=== PATIENT | female | born 1955 | race African-American/Black ===

== ENCOUNTER 2020-11-27 20:40 | Inpatient (IN) | payer OTHER ==
[~2020-11-27] VITALS: Ht 160 cm; Wt 88.5 kg
[~2020-11-27 20:40] MED LIST: ALBU18HF2 IH; FLUT1DIS3 INH; FURO-151 MT; HYDR100T26 PO; NIFE-32 MT
[2020-11-27] MEDS ORDERED: ALBUTEROL (0.083%) 2.5MG/3ML NEB HHN STA (21:22)
[2020-11-27] MEDS ORDERED: METHYLPREDNISOLONE SOD SUCC 125 MG/2 ML VIAL IV STA (21:22)
[2020-11-27 23:44] LABS: BASOPHILS % 0.6 % (0.0-2.0); CHLORIDE 111 mEq/L (98-107); EOSINOPHILS % 1.2 % (0.0-5.0); HEMATOCRIT. 30.9 % (36.0-48.0); HEMOGLOBIN. 9.8 g/dL (12.0-16.0); LYMPHOCYTES % 9.9 % (20.0-50.0); MEAN CORPUSCULAR HEMOGLOBIN 26.8 pg (28.0-32.0); MEAN CORPUSCULAR VOLUME 84.5 fL (81.0-99.0); MONOCYTES % 5.1 % (2.0-8.0); NEUTROPHILS % 83.2 % (40.0-76.0); PLATELET 246 x1000/uL (130-400); RED BLOOD CELL COUNT 3.66 mill/uL (4.2-5.4); RED CELL DISTRIBUTION WIDTH 15.9 % (11.6-14.6)
[2020-11-28] MEDS ORDERED: FUROSEMIDE 40MG/4ML VIAL IV ONE (00:15)
[2020-11-28] MEDS ORDERED: ASPIRIN 81MG TABLET PO ONE (00:15)
[2020-11-28] MEDS ORDERED: ACETAMINOPHEN 325MG TABLET PO PRN (09:15)
[2020-11-28] MEDS ORDERED: ONDANSETRON HCL 4MG/2ML INJ IV PRN (09:15)
[2020-11-28] MEDS: METHYLPREDNISOLONE SOD SUCC 40 MG/ML VIAL IV SCH ×2 (11:26→22:00)
[2020-11-28] MEDS: FUROSEMIDE 40MG/4ML VIAL IVP SCH (11:26)
[2020-11-28] MEDS: AMLODIPINE 10MG TABLET PO SCH (11:27)
[2020-11-28] MEDS: IPRATROPIUM BROMIDE (0.02%) 0.5MG/2.5ML NEB HHN SCH ×2 (12:00→20:01)
[2020-11-28] MEDS ORDERED: DEXTROSE 50% WATER 50ML SYRINGE IV PRN (16:15)
[2020-11-28] MEDS: INSULIN LISPRO (MEDIUM DOSE) 100 UNITS/ML SUBCUT SCH ×2 (19:57→22:22)
[2020-11-28] MEDS: BLOOD SUGAR DIAGNOSTIC STRIP TEST SCH ×2 (19:57→22:22)
[2020-11-28] MEDS: CLONIDINE 0.1MG TABLET PO PRN (22:25)
[2020-11-28] MEDS: FAMOTIDINE 20MG TABLET PO SCH (22:25)
[2020-11-28 22:42] VITALS: BP 177/90
[2020-11-28] MEDS ORDERED: GABA-529 MT (22:51)
[2020-11-28] MEDS ORDERED: AMLO10TA80 PO (22:51)
[2020-11-28] MEDS ORDERED: CALC-900 MT (22:51)
[2020-11-28] MEDS ORDERED: ATOR10TA MT (22:51)
[2020-11-28] MEDS ORDERED: ASPI-1497 PO (22:51)
[2020-11-28] MEDS ORDERED: SEMA0.25 SQ (22:51)
[2020-11-29] VITALS: BP 149/93
[2020-11-29] MEDS: IPRATROPIUM BROMIDE (0.02%) 0.5MG/2.5ML NEB HHN SCH ×6 (02:16→21:20)
[2020-11-29 04:00] VITALS: BP 136/50
[2020-11-29 05:53] LABS: BASOPHILS % 0.3 % (0.0-2.0); EOSINOPHILS % 0.6 % (0.0-5.0); HEMATOCRIT. 30.2 % (36.0-48.0); HEMOGLOBIN. 9.5 g/dL (12.0-16.0); LYMPHOCYTES % 11.6 % (20.0-50.0); MEAN CORPUSCULAR HEMOGLOBIN 26.8 pg (28.0-32.0); MEAN CORPUSCULAR VOLUME 84.8 fL (81.0-99.0); MEAN PLATELET VOLUME 9.7 fl (7.4-10.4); NEUTROPHILS % 79.5 % (40.0-76.0); PLATELET 242 x1000/uL (130-400); RED BLOOD CELL COUNT 3.56 mill/uL (4.2-5.4); RED CELL DISTRIBUTION WIDTH 15.8 % (11.6-14.6)
[2020-11-29] MEDS: BLOOD SUGAR DIAGNOSTIC STRIP TEST SCH ×4 (06:19→21:36)
[2020-11-29] MEDS: INSULIN LISPRO (MEDIUM DOSE) 100 UNITS/ML SUBCUT SCH ×4 (06:19→21:36)
[2020-11-29] MEDS: METHYLPREDNISOLONE SOD SUCC 40 MG/ML VIAL IV SCH (06:34)
[2020-11-29 08:00] VITALS: BP 148/54
[2020-11-29] MEDS: FUROSEMIDE 40MG/4ML VIAL IVP SCH ×2 (08:44→09:00)
[2020-11-29] MEDS: AMLODIPINE 10MG TABLET PO SCH (08:44)
[2020-11-29] MEDS ORDERED: INFLUENZA VACCINE 05/PF 0.5 ML SYRINGE IM ONE (10:00)
[2020-11-29] MEDS: FUROSEMIDE 40MG TABLET PO SCH ×2 (10:15→17:25)
[2020-11-29 12:00] VITALS: BP 170/92
[2020-11-29] MEDS: ENOXAPARIN 40MG/0.4ML SYR SUBCUT SCH (12:03)
[2020-11-29] MEDS: CLONIDINE 0.1MG TABLET PO PRN ×2 (13:01→20:58)
[2020-11-29 16:00] VITALS: BP 124/55
[2020-11-29] MEDS: PREDNISONE 20MG TABLET PO SCH (17:23)
[2020-11-29 20:00] VITALS: BP 165/86
[2020-11-29] MEDS: FAMOTIDINE 20MG TABLET PO SCH (20:57)
[2020-11-30] VITALS: BP 188/94
[2020-11-30 00:19] VITALS: BP_SYST 155; BP_SYST 173; BP_DIAS 73
[2020-11-30] MEDS: IPRATROPIUM BROMIDE (0.02%) 0.5MG/2.5ML NEB HHN SCH ×4 (01:12→12:12)
[2020-11-30] MEDS: HYDRALAZINE HCL 10MG TABLET PO PRN ×2 (01:28→10:08)
[2020-11-30 04:00] VITALS: BP 173/80
[2020-11-30] MEDS: CLONIDINE 0.1MG TABLET PO PRN (05:25)
[2020-11-30] MEDS: BLOOD SUGAR DIAGNOSTIC STRIP TEST SCH ×2 (05:41→11:57)
[2020-11-30] MEDS: FUROSEMIDE 40MG TABLET PO SCH (06:16)
[2020-11-30] MEDS: INSULIN LISPRO (MEDIUM DOSE) 100 UNITS/ML SUBCUT SCH ×2 (06:18→12:21)
[2020-11-30 08:00] VITALS: BP 186/88
[2020-11-30] MEDS: PREDNISONE 20MG TABLET PO SCH (10:06)
[2020-11-30] MEDS: AMLODIPINE 10MG TABLET PO SCH (10:07)
[2020-11-30] MEDS: ENOXAPARIN 40MG/0.4ML SYR SUBCUT SCH (10:08)
[2020-11-30] MEDS ORDERED: HYDRALAZINE HCL 100MG TABLET PO NR (10:15)
[2020-11-30] MEDS ORDERED: IPRA3AMP9 NEB (11:31)
[2020-11-30] MEDS ORDERED: FURO-151 MT (11:31)
[2020-11-30] MEDS ORDERED: P20 MT (11:31)
[2020-11-30 12:00] VITALS: BP 177/85
[2020-11-30 13:54] VITALS: BP 155/79
[2020-11-30] MEDS ORDERED: HYDRALAZINE HCL 100MG TABLET PO SCH (16:00)
== END 2020-11-30 14:40 | disposition home or self-care (01) | DRG 140 ==
LOC: ER 20:40 → MICUSO 11-28 01:09 → 7EST 11-28 20:25
PROVIDERS: ADMIT Internal Medicine; ATTEND Internal Medicine
DX: J44.1 Chronic obstructive pulmonary disease with (acute) exacerbation (principal); J96.00 Acute respiratory failure, unspecified whether with hypoxia or hypercapnia; N17.0 Acute kidney failure with tubular necrosis; I50.33 Acute on chronic diastolic (congestive) heart failure; I27.20 Pulmonary hypertension, unspecified; E11.22 Type 2 diabetes mellitus with diabetic chronic kidney disease; D64.9 Anemia, unspecified; E11.42 Type 2 diabetes mellitus with diabetic polyneuropathy; I13.0 Hypertensive heart and chronic kidney disease with heart failure and stage 1 through stage 4 chronic kidney disease, or unspecified chronic kidney disease; E66.9 Obesity, unspecified; N18.9 Chronic kidney disease, unspecified; E78.5 Hyperlipidemia, unspecified; I07.1 Rheumatic tricuspid insufficiency; M19.90 Unspecified osteoarthritis, unspecified site; G25.1 Drug-induced tremor; T48.6X5A Adverse effect of antiasthmatics, initial encounter; Y92.238 Other place in hospital as the place of occurrence of the external cause; Z68.34 Body mass index [BMI] 34.0-34.9, adult; Z71.3 Dietary counseling and surveillance
CPT/HCPCS: 36415; 71045; 80048; 80053; 82962; 83880; 84484; 85025; 90686; 93005; 94640; 99291; J1650; J1815; J1940; J2920; J2930; J7512

== ENCOUNTER 2020-12-18 07:43 | Inpatient (IN) | payer OTHER ==
[~2020-12-18] VITALS: Ht 160 cm; Wt 73.0 kg
[~2020-12-18 07:43] MED LIST changes: +AMLO10TA80 PO; +ASPI-1497 PO; +ATOR10TA MT; +CALC-900 MT; +GABA-529 MT; +IPRA3AMP9 NEB; +P20 MT; +SEMA0.25 SQ
[2020-12-18] MEDS ORDERED: IPRATROPIUM/ALBUTEROL 0.5-3(2.5)MG/3ML NEB HHN ONE (08:30)
[2020-12-18] MEDS ORDERED: PREDNISONE 20MG TABLET PO ONE (08:30)
[2020-12-18] MEDS ORDERED: ASPIRIN 325MG TABLET PO ONE (08:30)
[2020-12-18] MEDS ORDERED: CEFTRIAXONE 1 G PREMIX 50 ML IV ONE (08:45)
[2020-12-18] MEDS ORDERED: DOXYCYCLINE HYCLATE 100MG CAPSULE PO ONE (08:45)
[2020-12-18 09:09] LABS: BASOPHILS % 0.7 % (0.0-2.0); EOSINOPHILS % 0.7 % (0.0-5.0); HEMATOCRIT. 31.5 % (36.0-48.0); HEMOGLOBIN. 9.9 g/dL (12.0-16.0); LYMPHOCYTES % 8.1 % (20.0-50.0); MEAN CORPUSCULAR HEMOGLOBIN 26.9 pg (28.0-32.0); MEAN CORPUSCULAR VOLUME 85.5 fL (81.0-99.0); MEAN PLATELET VOLUME 8.9 fl (7.4-10.4); MONOCYTES % 3.8 % (2.0-8.0); NEUTROPHILS % 86.7 % (40.0-76.0); PLATELET 203 x1000/uL (130-400); RED BLOOD CELL COUNT 3.68 mill/uL (4.2-5.4); RED CELL DISTRIBUTION WIDTH 15.8 % (11.6-14.6)
[2020-12-18 09:14] LABS: CHLORIDE 110 mEq/L (98-107)
[2020-12-18] MEDS ORDERED: FUROSEMIDE 20MG/2ML VIAL IVP ONE (10:15)
[2020-12-18] MEDS ORDERED: NALOXONE HCL 0.4MG/ML VIAL IV PRN (11:30)
[2020-12-18] MEDS ORDERED: DOCUSATE SODIUM 100MG CAPSULE PO PRN (11:30)
[2020-12-18] MEDS ORDERED: ACETAMINOPHEN 325MG TABLET PO PRN (11:30)
[2020-12-18] MEDS ORDERED: IPRATROPIUM/ALBUTEROL 0.5-3(2.5)MG/3ML NEB NEB PRN (11:30)
[2020-12-18] MEDS ORDERED: ONDANSETRON HCL 4MG/2ML INJ IV PRN (11:30)
[2020-12-18] MEDS ORDERED: MORPHINE SULFATE 2 MG/ML CPJ (NOT FOR IM USE) IV PRN (11:30)
[2020-12-18] MEDS ORDERED: NA PHOS,M-B/NA PHOS,DI-BA ENEMA 118ML PR PRN (11:30)
[2020-12-18] MEDS ORDERED: HYDROCODONE/ACETAMINOPHEN 5/325MG TABLET PO PRN (11:30)
[2020-12-18] MEDS ORDERED: LORAZEPAM 2MG/ML CPJ IV PRN (11:30)
[2020-12-18] MEDS ORDERED: GUAIFENESIN 200MG/10ML SUGAR FREE UDC PO PRN (11:30)
[2020-12-18] MEDS ORDERED: MAGNESIUM/ALUMINUM HYDROXIDE/SIMETHICONE 30ML UDC PO PRN (11:30)
[2020-12-18 14:35] VITALS: BP 149/75
[2020-12-18 14:45] VITALS: BP 149/75
[2020-12-18] MEDS: ENOXAPARIN 30MG/0.3ML SYR SUBCUT SCH (15:27)
[2020-12-18 16:00] VITALS: BP 158/71
[2020-12-18] MEDS ORDERED: DEXTROSE 50% WATER 50ML SYRINGE IV PRN (16:00)
[2020-12-18 17:20] LABS: CHLORIDE 105 mEq/L (98-107)
[2020-12-18] MEDS: BLOOD SUGAR DIAGNOSTIC STRIP TEST SCH ×2 (17:25→20:46)
[2020-12-18] MEDS: INSULIN LISPRO 100 UNITS/ML SUBCUT SCH ×2 (17:34→20:46)
[2020-12-18] MEDS: DIPHENHYDRAMINE 50MG/ML VIAL IV PRN (23:29)
[2020-12-19] VITALS: BP 134/61
[2020-12-19 04:00] VITALS: BP 150/87
[2020-12-19] MEDS: CLONIDINE 0.1MG TABLET PO PRN ×2 (04:44→18:02)
[2020-12-19 05:38] LABS: BASOPHILS % 0.4 % (0.0-2.0); EOSINOPHILS % 0.2 % (0.0-5.0); HEMATOCRIT. 29.1 % (36.0-48.0); HEMOGLOBIN. 9.3 g/dL (12.0-16.0); LYMPHOCYTES % 8.8 % (20.0-50.0); MEAN CORPUSCULAR VOLUME 84.5 fL (81.0-99.0); MEAN PLATELET VOLUME 9.8 fl (7.4-10.4); MONOCYTES % 8.6 % (2.0-8.0); PLATELET 196 x1000/uL (130-400); RED BLOOD CELL COUNT 3.44 mill/uL (4.2-5.4); RED CELL DISTRIBUTION WIDTH 15.4 % (11.6-14.6)
[2020-12-19 06:21] LABS: CHLORIDE 109 mEq/L (98-107)
[2020-12-19 06:32] LABS: LDL CHOLESTEROL 66 mg/dL (5-100)
[2020-12-19 06:34] LABS: HDL CHOLESTEROL 71 mg/dL (40-59); T4 FREE 1.09 ng/dL (0.76-1.46)
[2020-12-19] MEDS: BLOOD SUGAR DIAGNOSTIC STRIP TEST SCH ×4 (06:42→21:12)
[2020-12-19 08:00] VITALS: BP 154/82
[2020-12-19] MEDS: ASPIRIN 81MG EC TABLET PO SCH (08:43)
[2020-12-19] MEDS: FUROSEMIDE 40MG/4ML VIAL IV SCH (08:43)
[2020-12-19] MEDS: INSULIN LISPRO 100 UNITS/ML SUBCUT SCH ×4 (08:44→21:00)
[2020-12-19 09:17] LABS: T4 FREE 1.13 ng/dL (0.76-1.46)
[2020-12-19 10:32] LABS: *AMPHETAMINES SCREEN URINE NEGATIVE (NEGATIVE); *BARBITURATES SCREEN URINE NEGATIVE (NEGATIVE)
[2020-12-19 10:33] LABS: *BENZODIAZEPINES SCREEN URINE NEGATIVE (NEGATIVE); *COCAINE SCREEN URINE NEGATIVE (NEGATIVE); METHADONE URINE SCREEN NEGATIVE (NEGATIVE); OPIATES URINE SCREEN NEGATIVE (NEGATIVE); PHENCYCLIDINE URINE SCREEN NEGATIVE (NEGATIVE)
[2020-12-19 10:34] LABS: CANNABINOID URINE SCREEN PRESUMTIVE POSITIVE (NEGATIVE)
[2020-12-19 12:14] VITALS: BP 153/72
[2020-12-19 13:34] LABS: CREATINE KINASE 145 IU/L (26-192)
[2020-12-19] MEDS: ENOXAPARIN 30MG/0.3ML SYR SUBCUT SCH (13:39)
[2020-12-19 15:26] LABS: CLARITY URINE CLEAR (CLEAR); COLOR URINE YELLOW (YELLOW); KETONES URINE NEGATIVE (NEGATIVE); LEUKOCYTE ESTERASE URINE NEGATIVE (NEGATIVE); NITRITE URINE NEGATIVE (NEGATIVE); OCCULT BLOOD URINE NEGATIVE (NEGATIVE); PROTEIN URINE 2+ (NEGATIVE); SPECIFIC GRAVITY URINE 1.007 (1.005-1.030); UROBILINOGEN URINE 0.2 E.U./dL (0.2-1.0)
[2020-12-19 16:10] VITALS: BP 164/86
[2020-12-19 18:02] LABS: CREATINE KINASE 130 IU/L (26-192)
[2020-12-19 18:03] LABS: CREATINE KINASE MB FRACTION 1.1 ng/mL (0.5-3.6)
[2020-12-19 20:00] VITALS: BP 149/83
[2020-12-19] MEDS: DIPHENHYDRAMINE 50MG/ML VIAL IV PRN (22:45)
[2020-12-19 23:19] LABS: CREATINE KINASE 116 IU/L (26-192)
[2020-12-19 23:20] LABS: CREATINE KINASE MB FRACTION < 1.0 ng/mL (0.5-3.6)
[2020-12-20] VITALS: BP 163/88
[2020-12-20 04:00] VITALS: BP 155/82
[2020-12-20 06:55] LABS: BASOPHILS % 0.9 % (0.0-2.0); EOSINOPHILS % 1.3 % (0.0-5.0); HEMATOCRIT. 31.7 % (36.0-48.0); HEMOGLOBIN. 10.1 g/dL (12.0-16.0); LYMPHOCYTES % 13.1 % (20.0-50.0); MEAN CORPUSCULAR HEMOGLOBIN 26.9 pg (28.0-32.0); MEAN CORPUSCULAR VOLUME 84.4 fL (81.0-99.0); MEAN PLATELET VOLUME 9.5 fl (7.4-10.4); MONOCYTES % 8.1 % (2.0-8.0); NEUTROPHILS % 76.6 % (40.0-76.0); PLATELET 219 x1000/uL (130-400); RED BLOOD CELL COUNT 3.76 mill/uL (4.2-5.4); RED CELL DISTRIBUTION WIDTH 15.8 % (11.6-14.6)
[2020-12-20] MEDS: INSULIN LISPRO 100 UNITS/ML SUBCUT SCH ×4 (07:34→21:00)
[2020-12-20] MEDS: BLOOD SUGAR DIAGNOSTIC STRIP TEST SCH ×4 (07:34→21:00)
[2020-12-20 07:39] LABS: CHLORIDE 111 mEq/L (98-107)
[2020-12-20 07:50] LABS: CREATINE KINASE 90 IU/L (26-192)
[2020-12-20 07:53] LABS: CREATINE KINASE MB FRACTION < 1.0 ng/mL (0.5-3.6)
[2020-12-20 08:00] VITALS: BP 140/80
[2020-12-20] MEDS: FUROSEMIDE 40MG/4ML VIAL IV SCH ×2 (08:26→17:33)
[2020-12-20] MEDS: ASPIRIN 81MG EC TABLET PO SCH (08:26)
[2020-12-20] MEDS: IPRATROPIUM BROMIDE (0.02%) 0.5MG/2.5ML NEB HHN SCH ×3 (09:31→20:35)
[2020-12-20 12:00] VITALS: BP 188/91
[2020-12-20] MEDS: ENOXAPARIN 30MG/0.3ML SYR SUBCUT SCH (13:25)
[2020-12-20 16:00] VITALS: BP 187/89
[2020-12-20] MEDS: CLONIDINE 0.1MG TABLET PO PRN (17:39)
[2020-12-20 20:00] VITALS: BP 112/88
[2020-12-20] MEDS: DIPHENHYDRAMINE 50MG/ML VIAL IV PRN (22:34)
[2020-12-21] VITALS: BP 179/89
[2020-12-21] MEDS: IPRATROPIUM BROMIDE (0.02%) 0.5MG/2.5ML NEB HHN SCH ×3 (01:44→12:30)
[2020-12-21] MEDS: CLONIDINE 0.1MG TABLET PO PRN (06:24)
[2020-12-21] MEDS: BLOOD SUGAR DIAGNOSTIC STRIP TEST SCH ×2 (06:24→12:49)
[2020-12-21] MEDS: FUROSEMIDE 40MG/4ML VIAL IV SCH (06:26)
[2020-12-21] MEDS: INSULIN LISPRO 100 UNITS/ML SUBCUT SCH ×2 (07:30→13:14)
[2020-12-21 08:00] VITALS: BP 128/89
[2020-12-21] MEDS: ASPIRIN 81MG EC TABLET PO SCH (09:07)
[2020-12-21 12:00] VITALS: BP 158/72
[2020-12-21] MEDS ORDERED: BUDESONIDE 0.5MG/2ML NEB HHN SCH (12:45)
[2020-12-21] MEDS: ENOXAPARIN 30MG/0.3ML SYR SUBCUT SCH (13:14)
[2020-12-21 15:17] VITALS: BP 158/72
== END 2020-12-21 16:06 | disposition home or self-care (01) | DRG 133 ==
LOC: ER 07:57 → 6WST 10:33 → EDBEDREQ 10:40 → ENRESERV 14:35
PROVIDERS: ADMIT Internal Medicine; ATTEND Internal Medicine
DX: J96.00 Acute respiratory failure, unspecified whether with hypoxia or hypercapnia (principal); N17.0 Acute kidney failure with tubular necrosis; I50.33 Acute on chronic diastolic (congestive) heart failure; I27.20 Pulmonary hypertension, unspecified; R65.10 Systemic inflammatory response syndrome (SIRS) of non-infectious origin without acute organ dysfunction; I13.0 Hypertensive heart and chronic kidney disease with heart failure and stage 1 through stage 4 chronic kidney disease, or unspecified chronic kidney disease; E11.22 Type 2 diabetes mellitus with diabetic chronic kidney disease; D64.9 Anemia, unspecified; E11.42 Type 2 diabetes mellitus with diabetic polyneuropathy; E78.5 Hyperlipidemia, unspecified; I25.10 Atherosclerotic heart disease of native coronary artery without angina pectoris; J44.9 Chronic obstructive pulmonary disease, unspecified; N18.9 Chronic kidney disease, unspecified; M19.90 Unspecified osteoarthritis, unspecified site; I07.1 Rheumatic tricuspid insufficiency; Z87.891 Personal history of nicotine dependence; Z79.82 Long term (current) use of aspirin; Z79.899 Other long term (current) drug therapy
CPT/HCPCS: 36415; 71045; 71250; 76770; 80048; 80053; 80061; 80305; 81003; 82550; 82553; 82962; 83036; 83880; 84439; 84443; 84484; 85025; 85379; 86038; 86160; 93005; 93306; 93970; 94640; 99285; J0696; J1200; J1650; J1815; J1940; J7512

== ENCOUNTER 2021-09-08 03:34 | Inpatient (IN) | payer OTHER ==
[~2021-09-08] VITALS: Ht 160 cm; Wt 72.6 kg
[~2021-09-08 03:34] MED LIST changes: -FURO-151 MT; -P20 MT
[2021-09-08] MEDS ORDERED: IPRATROPIUM BROMIDE (0.02%) 0.5MG/2.5ML NEB HHN STA (03:57)
[2021-09-08] MEDS ORDERED: METHYLPREDNISOLONE SOD SUCC 125 MG/2 ML VIAL IV STA (03:57)
[2021-09-08] MEDS ORDERED: ALBUTEROL (0.083%) 2.5MG/3ML NEB HHN STA (03:57)
[2021-09-08] MEDS ORDERED: MAGNESIUM 2 G PREMIX 50 ML IV STA (03:57)
[2021-09-08 05:13] LABS: HEMOGLOBIN 8.9 g/dL (12.0-16.0); MEAN CORPUSCULAR HEMOGLOBIN 27.9 pg (28.0-32.0); PLATELET 156 x1000/uL (130-400); RED BLOOD CELL COUNT 3.18 mill/uL (4.2-5.4); RED CELL DISTRIBUTION WIDTH 15.8 % (11.6-14.6)
[2021-09-08 05:15] LABS: CHLORIDE 115 mEq/L (98-107)
[2021-09-08] MEDS ORDERED: ASPIRIN 81MG TABLET PO ONE (08:00)
[2021-09-08] MEDS ORDERED: ACETAMINOPHEN WITH CODEINE 300/30MG TABLET PO ONE (08:00)
[2021-09-08] MEDS ORDERED: FUROSEMIDE 40MG/4ML VIAL IV ONE (08:00)
[2021-09-08] MEDS ORDERED: DOCUSATE SODIUM 100MG CAPSULE PO PRN (11:00)
[2021-09-08] MEDS ORDERED: ENOXAPARIN 40MG/0.4ML SYR SUBCUT SCH (11:00)
[2021-09-08] MEDS ORDERED: GUAIFENESIN 200MG/10ML SUGAR FREE UDC PO PRN (11:00)
[2021-09-08] MEDS ORDERED: CLONIDINE 0.1MG TABLET PO PRN (11:00)
[2021-09-08] MEDS ORDERED: MAGNESIUM/ALUMINUM HYDROXIDE/SIMETHICONE 30ML UDC PO PRN (11:00)
[2021-09-08] MEDS ORDERED: DEXTROSE 50% WATER 50ML SYRINGE IV PRN (11:00)
[2021-09-08] MEDS ORDERED: METOLAZONE 10MG TABLET PO NR (11:00)
[2021-09-08] MEDS ORDERED: ACETAMINOPHEN 325MG TABLET PO PRN ×2 (11:00)
[2021-09-08] MEDS ORDERED: ONDANSETRON HCL 4MG/2ML INJ IV PRN (11:00)
[2021-09-08 12:40] VITALS: BP 143/71
[2021-09-08] MEDS: BLOOD SUGAR DIAGNOSTIC STRIP TEST SCH ×3 (13:00→21:25)
[2021-09-08] MEDS ORDERED: LIDOCAINE 5% PATCH TOP PRN (13:00)
[2021-09-08] MEDS: ENOXAPARIN 30MG/0.3ML SYR SUBCUT SCH (13:07)
[2021-09-08] MEDS: INSULIN LISPRO 100 UNITS/ML SUBCUT SCH ×3 (13:07→21:25)
[2021-09-08] MEDS: DILTIAZEM HCL 60MG TABLET PO SCH ×2 (13:07→17:29)
[2021-09-08 13:35] VITALS: BP 145/78
[2021-09-08 14:19] LABS: T4 FREE 0.93 ng/dL (0.76-1.46)
[2021-09-08 16:00] VITALS: BP 151/87
[2021-09-08 16:00] LABS: FOLIC ACID (FOLATE) SERUM 8.2 ng/mL (>5.38)
[2021-09-08] MEDS: FUROSEMIDE 40MG/4ML VIAL IVP SCH (17:28)
[2021-09-08] MEDS: DIPHENHYDRAMINE 25MG CAPSULE PO PRN (17:29)
[2021-09-08] MEDS: NITROGLYCERIN 0.4MG TABLET SL SL PRN ×2 (17:45→17:49)
[2021-09-08] MEDS: IPRATROPIUM/ALBUTEROL 0.5-3(2.5)MG/3ML NEB NEB PRN ×2 (18:13→20:28)
[2021-09-08 20:00] VITALS: BP 122/67
[2021-09-08] MEDS ORDERED: ZOLPIDEM TARTRATE 5MG TABLET PO PRN (21:00)
[2021-09-08 22:01] LABS: CREATINE KINASE MB FRACTION 1.3 ng/mL (0.5-3.6)
[2021-09-08] MEDS: FAMOTIDINE 20MG TABLET PO SCH (22:31)
[2021-09-08] MEDS: HYDRALAZINE HCL 50MG TABLET PO SCH (22:32)
[2021-09-09] VITALS (8 sets, daily range): BP systolic 120–148; BP diastolic 55–80
[2021-09-09] MEDS: DILTIAZEM HCL 60MG TABLET PO SCH ×4 (00:49→18:16)
[2021-09-09 06:47] LABS: BASOPHILS % 0.3 % (0.0-2.0); EOSINOPHILS % 0.6 % (0.0-5.0); HEMATOCRIT. 25.5 % (36.0-48.0); HEMOGLOBIN. 8.2 g/dL (12.0-16.0); MEAN CORPUSCULAR HEMOGLOBIN 28.2 pg (28.0-32.0); MEAN CORPUSCULAR VOLUME 88.1 fL (81.0-99.0); MEAN PLATELET VOLUME 9.9 fl (7.4-10.4); MONOCYTES % 5.8 % (2.0-8.0); NEUTROPHILS % 85.3 % (40.0-76.0); PLATELET 155 x1000/uL (130-400); RED CELL DISTRIBUTION WIDTH 15.1 % (11.6-14.6)
[2021-09-09] MEDS: IPRATROPIUM/ALBUTEROL 0.5-3(2.5)MG/3ML NEB NEB PRN ×2 (06:55→10:01)
[2021-09-09 07:06] LABS: CHLORIDE 110 mEq/L (98-107)
[2021-09-09] MEDS: FUROSEMIDE 40MG/4ML VIAL IVP SCH ×2 (07:16→18:09)
[2021-09-09] MEDS: HYDRALAZINE HCL 50MG TABLET PO SCH ×3 (07:16→21:10)
[2021-09-09 07:21] LABS: PHOSPHORUS 3.4 mg/dL (2.5-4.9)
[2021-09-09] MEDS: BLOOD SUGAR DIAGNOSTIC STRIP TEST SCH ×4 (07:40→21:08)
[2021-09-09] MEDS: INSULIN LISPRO 100 UNITS/ML SUBCUT SCH ×4 (07:40→21:00)
[2021-09-09 08:23] LABS: CREATINE KINASE MB FRACTION 1.7 ng/mL (0.5-3.6)
[2021-09-09] MEDS: METOLAZONE 2.5MG TABLET PO SCH (09:01)
[2021-09-09] MEDS: ASPIRIN 325MG EC TABLET PO SCH (09:01)
[2021-09-09] MEDS: IPRATROPIUM/ALBUTEROL 0.5-3(2.5)MG/3ML NEB HHN SCH ×3 (10:01→21:19)
[2021-09-09] MEDS: ENOXAPARIN 30MG/0.3ML SYR SUBCUT SCH (12:46)
[2021-09-09] MEDS: FAMOTIDINE 20MG TABLET PO SCH (21:09)
[2021-09-09] MEDS: DIPHENHYDRAMINE 25MG CAPSULE PO PRN (21:10)
[2021-09-10] VITALS (8 sets, daily range): BP systolic 108–149; BP diastolic 57–100
[2021-09-10] MEDS: DILTIAZEM HCL 60MG TABLET PO SCH ×4 (00:26→18:44)
[2021-09-10] MEDS: IPRATROPIUM/ALBUTEROL 0.5-3(2.5)MG/3ML NEB HHN SCH ×5 (02:40→21:50)
[2021-09-10] MEDS: HYDRALAZINE HCL 50MG TABLET PO SCH ×3 (06:16→21:36)
[2021-09-10] MEDS: INSULIN LISPRO 100 UNITS/ML SUBCUT SCH ×4 (08:00→21:00)
[2021-09-10] MEDS: METOLAZONE 2.5MG TABLET PO SCH (08:27)
[2021-09-10] MEDS: ASPIRIN 325MG EC TABLET PO SCH (08:27)
[2021-09-10] MEDS: BLOOD SUGAR DIAGNOSTIC STRIP TEST SCH ×4 (08:42→21:36)
[2021-09-10 08:57] LABS: BASOPHILS % 0.5 % (0.0-2.0); EOSINOPHILS % 0.1 % (0.0-5.0); HEMATOCRIT. 24.6 % (36.0-48.0); LYMPHOCYTES % 8.5 % (20.0-50.0); MEAN CORPUSCULAR HEMOGLOBIN 28.6 pg (28.0-32.0); MEAN CORPUSCULAR VOLUME 87.4 fL (81.0-99.0); MONOCYTES % 6.5 % (2.0-8.0); NEUTROPHILS % 84.4 % (40.0-76.0); PLATELET 140 x1000/uL (130-400); RED BLOOD CELL COUNT 2.81 mill/uL (4.2-5.4); RED CELL DISTRIBUTION WIDTH 15.3 % (11.6-14.6)
[2021-09-10] MEDS: ENOXAPARIN 30MG/0.3ML SYR SUBCUT SCH (12:31)
[2021-09-10] MEDS: FUROSEMIDE 40MG/4ML VIAL IVP SCH (18:43)
[2021-09-10] MEDS: FAMOTIDINE 20MG TABLET PO SCH (21:35)
[2021-09-10] MEDS: DIPHENHYDRAMINE 25MG CAPSULE PO PRN (21:35)
[2021-09-11] VITALS (12 sets, daily range): BP systolic 108–152; BP diastolic 56–74
[2021-09-11] MEDS: DILTIAZEM HCL 60MG TABLET PO SCH ×4 (00:06→18:06)
[2021-09-11] MEDS: IPRATROPIUM/ALBUTEROL 0.5-3(2.5)MG/3ML NEB HHN SCH ×4 (01:25→20:13)
[2021-09-11] MEDS: HYDRALAZINE HCL 50MG TABLET PO SCH ×3 (06:14→21:16)
[2021-09-11] MEDS: BLOOD SUGAR DIAGNOSTIC STRIP TEST SCH ×4 (07:30→21:17)
[2021-09-11] MEDS: INSULIN LISPRO 100 UNITS/ML SUBCUT SCH ×4 (08:00→21:00)
[2021-09-11 08:07] LABS: HEMATOCRIT. 23.5 % (36.0-48.0); HEMOGLOBIN. 7.8 g/dL (12.0-16.0); MEAN CORPUSCULAR HEMOGLOBIN 28.6 pg (28.0-32.0); MEAN CORPUSCULAR VOLUME 86.7 fL (81.0-99.0); MEAN PLATELET VOLUME 9.8 fl (7.4-10.4); PLATELET 144 x1000/uL (130-400); RED BLOOD CELL COUNT 2.71 mill/uL (4.2-5.4); RED CELL DISTRIBUTION WIDTH 15.3 % (11.6-14.6)
[2021-09-11 08:40] LABS: PHOSPHORUS 4.1 mg/dL (2.5-4.9)
[2021-09-11] MEDS: METOLAZONE 2.5MG TABLET PO SCH (09:05)
[2021-09-11] MEDS: FUROSEMIDE 40MG/4ML VIAL IVP SCH ×2 (09:05→18:07)
[2021-09-11] MEDS: ASPIRIN 325MG EC TABLET PO SCH (09:05)
[2021-09-11] MEDS: ENOXAPARIN 30MG/0.3ML SYR SUBCUT SCH (14:09)
[2021-09-11] MEDS ORDERED: EPOETIN ALFA-EPBX 10,000 UNIT/ML VIAL SUBCUT NR (21:00)
[2021-09-11] MEDS: FAMOTIDINE 20MG TABLET PO SCH (21:16)
[2021-09-11] MEDS: DIPHENHYDRAMINE 25MG CAPSULE PO PRN (21:16)
[2021-09-12] VITALS (12 sets, daily range): BP systolic 114–145; BP diastolic 51–99
[2021-09-12] MEDS: IPRATROPIUM/ALBUTEROL 0.5-3(2.5)MG/3ML NEB HHN SCH ×3 (02:00→14:41)
[2021-09-12] MEDS: HYDRALAZINE HCL 50MG TABLET PO SCH ×3 (05:53→21:21)
[2021-09-12] MEDS: DILTIAZEM HCL 60MG TABLET PO SCH ×5 (05:54→23:13)
[2021-09-12 07:07] LABS: BASOPHILS % 0.7 % (0.0-2.0); EOSINOPHILS % 2.4 % (0.0-5.0); HEMATOCRIT. 24.1 % (36.0-48.0); LYMPHOCYTES % 7.5 % (20.0-50.0); MEAN CORPUSCULAR HEMOGLOBIN 28.5 pg (28.0-32.0); MEAN CORPUSCULAR VOLUME 86.5 fL (81.0-99.0); MEAN PLATELET VOLUME 9.4 fl (7.4-10.4); MONOCYTES % 6.5 % (2.0-8.0); NEUTROPHILS % 82.9 % (40.0-76.0); PLATELET 173 x1000/uL (130-400); RED BLOOD CELL COUNT 2.79 mill/uL (4.2-5.4); RED CELL DISTRIBUTION WIDTH 14.9 % (11.6-14.6)
[2021-09-12] MEDS: BLOOD SUGAR DIAGNOSTIC STRIP TEST SCH ×4 (07:30→21:21)
[2021-09-12] MEDS: INSULIN LISPRO 100 UNITS/ML SUBCUT SCH ×4 (08:00→21:22)
[2021-09-12 08:07] LABS: ANTI-NUCLEAR ANTIBODIES DIRECT Positive (Negative)
[2021-09-12] MEDS: FUROSEMIDE 40MG/4ML VIAL IVP SCH ×2 (08:36→17:42)
[2021-09-12] MEDS: METOLAZONE 2.5MG TABLET PO SCH (08:36)
[2021-09-12] MEDS: ASPIRIN 325MG EC TABLET PO SCH (08:37)
[2021-09-12] MEDS ORDERED: LIDOCAINE HCL/PF 1% 2ML VIAL ONE (08:59)
[2021-09-12] MEDS ORDERED: METOLAZONE 2.5MG TABLET PO NR (09:00)
[2021-09-12] MEDS: ENOXAPARIN 30MG/0.3ML SYR SUBCUT SCH (15:05)
[2021-09-12 16:43] LABS: PLATELET ESTIMATE NORMAL
[2021-09-12 18:50] LABS: BG BASE EXCESS -5.8 mmol/L (-2.0-2.0); BG CARBOXYHEMOGLOBIN 0.1 % (0.5-1.5); BG DEOXYHEMOGLOBIN 14.6 % (0.0-5.0); BG FRACTION INSPIRED OXYGEN 60; BG HCO3 ACT 16.8 mmol/L (22.0-26.0); BG METHEMOGLOBIN 0.3 % (0.0-1.5); BG OXYGEN SATURATION 85.3 % (92.0-98.5); BG PCO2 24.7 mmHg (35.0-45.0); BG PO2 49.4 mmHg (75.0-100.0); BG SAMPLE SITE RIGHT BRACHIAL; BG TOTAL HEMOGLOBIN 10.9 g/dL (12.0-18.0); BG VENT MODE MASK - SIMPLE
[2021-09-12] MEDS: IPRATROPIUM/ALBUTEROL 0.5-3(2.5)MG/3ML NEB NEB PRN (20:35)
[2021-09-12] MEDS: DIPHENHYDRAMINE 25MG CAPSULE PO PRN (21:21)
[2021-09-12] MEDS: FAMOTIDINE 20MG TABLET PO SCH (21:21)
[2021-09-13] VITALS (10 sets, daily range): BP systolic 118–172; BP diastolic 69–82
[2021-09-13] MEDS: DILTIAZEM HCL 60MG TABLET PO SCH ×3 (05:46→18:00)
[2021-09-13] MEDS: HYDRALAZINE HCL 50MG TABLET PO SCH ×3 (05:47→21:17)
[2021-09-13] MEDS: BLOOD SUGAR DIAGNOSTIC STRIP TEST SCH ×4 (07:30→20:57)
[2021-09-13] MEDS: INSULIN LISPRO 100 UNITS/ML SUBCUT SCH ×4 (08:00→20:57)
[2021-09-13] MEDS: IPRATROPIUM/ALBUTEROL 0.5-3(2.5)MG/3ML NEB HHN SCH ×4 (08:11→21:16)
[2021-09-13] MEDS: FUROSEMIDE 40MG/4ML VIAL IVP SCH ×2 (10:01→17:37)
[2021-09-13] MEDS: ASPIRIN 325MG EC TABLET PO SCH (10:01)
[2021-09-13] MEDS: METOLAZONE 5MG TABLET PO SCH (11:54)
[2021-09-13] MEDS: ENOXAPARIN 30MG/0.3ML SYR SUBCUT SCH (17:33)
[2021-09-13] MEDS: DIPHENHYDRAMINE 25MG CAPSULE PO PRN (21:16)
[2021-09-13] MEDS: FAMOTIDINE 20MG TABLET PO SCH (21:16)
[2021-09-14] VITALS (10 sets, daily range): BP systolic 128–154; BP diastolic 51–80
[2021-09-14] MEDS: DILTIAZEM HCL 60MG TABLET PO SCH ×4 (00:13→17:09)
[2021-09-14] MEDS: HYDRALAZINE HCL 50MG TABLET PO SCH ×3 (06:27→21:33)
[2021-09-14 06:39] LABS: BASOPHILS % 0.8 % (0.0-2.0); EOSINOPHILS % 3.7 % (0.0-5.0); HEMOGLOBIN. 8.5 g/dL (12.0-16.0); LYMPHOCYTES % 14.5 % (20.0-50.0); MEAN CORPUSCULAR HEMOGLOBIN 28.2 pg (28.0-32.0); MEAN CORPUSCULAR VOLUME 86.3 fL (81.0-99.0); MEAN PLATELET VOLUME 8.7 fl (7.4-10.4); PLATELET 252 x1000/uL (130-400); RED BLOOD CELL COUNT 3.02 mill/uL (4.2-5.4); RED CELL DISTRIBUTION WIDTH 14.9 % (11.6-14.6)
[2021-09-14] MEDS: FUROSEMIDE 40MG/4ML VIAL IVP SCH ×2 (07:57→17:08)
[2021-09-14] MEDS: INSULIN LISPRO 100 UNITS/ML SUBCUT SCH ×4 (08:00→21:00)
[2021-09-14] MEDS: METOLAZONE 5MG TABLET PO SCH (08:03)
[2021-09-14] MEDS: BLOOD SUGAR DIAGNOSTIC STRIP TEST SCH ×4 (08:03→21:34)
[2021-09-14] MEDS: ASPIRIN 325MG EC TABLET PO SCH (08:03)
[2021-09-14] MEDS: IPRATROPIUM/ALBUTEROL 0.5-3(2.5)MG/3ML NEB HHN SCH ×4 (09:37→20:50)
[2021-09-14] MEDS: ENOXAPARIN 30MG/0.3ML SYR SUBCUT SCH (12:17)
[2021-09-14] MEDS: DIPHENHYDRAMINE 25MG CAPSULE PO PRN (21:33)
[2021-09-14] MEDS: FAMOTIDINE 20MG TABLET PO SCH (21:33)
[2021-09-15] VITALS (7 sets, daily range): BP systolic 128–136; BP diastolic 60–85
[2021-09-15] MEDS: DILTIAZEM HCL 60MG TABLET PO SCH ×4 (00:16→17:13)
[2021-09-15] MEDS: IPRATROPIUM/ALBUTEROL 0.5-3(2.5)MG/3ML NEB HHN SCH ×4 (02:15→20:38)
[2021-09-15] MEDS: HYDRALAZINE HCL 50MG TABLET PO SCH ×3 (06:32→21:48)
[2021-09-15] MEDS: INSULIN LISPRO 100 UNITS/ML SUBCUT SCH ×4 (08:00→21:00)
[2021-09-15] MEDS: FUROSEMIDE 40MG/4ML VIAL IVP SCH ×2 (08:17→17:13)
[2021-09-15] MEDS: METOLAZONE 5MG TABLET PO SCH (08:17)
[2021-09-15] MEDS: ASPIRIN 325MG EC TABLET PO SCH (08:17)
[2021-09-15] MEDS: BLOOD SUGAR DIAGNOSTIC STRIP TEST SCH ×4 (08:17→21:59)
[2021-09-15] MEDS: ENOXAPARIN 30MG/0.3ML SYR SUBCUT SCH (11:56)
[2021-09-15] MEDS: FAMOTIDINE 20MG TABLET PO SCH (21:48)
[2021-09-15] MEDS: DIPHENHYDRAMINE 25MG CAPSULE PO PRN (21:48)
[2021-09-16] VITALS (8 sets, daily range): BP systolic 11–135; BP diastolic 59–76
[2021-09-16] MEDS: DILTIAZEM HCL 60MG TABLET PO SCH ×4 (00:18→17:20)
[2021-09-16] MEDS: HYDRALAZINE HCL 50MG TABLET PO SCH ×3 (06:29→22:01)
[2021-09-16 06:53] LABS: BASOPHILS % 0.9 % (0.0-2.0); EOSINOPHILS % 3.1 % (0.0-5.0); HEMATOCRIT. 26.9 % (36.0-48.0); HEMOGLOBIN. 8.5 g/dL (12.0-16.0); LYMPHOCYTES % 14.1 % (20.0-50.0); MEAN CORPUSCULAR VOLUME 88.1 fL (81.0-99.0); MEAN PLATELET VOLUME 8.6 fl (7.4-10.4); MONOCYTES % 9.2 % (2.0-8.0); NEUTROPHILS % 72.7 % (40.0-76.0); PLATELET 296 x1000/uL (130-400); RED BLOOD CELL COUNT 3.05 mill/uL (4.2-5.4); RED CELL DISTRIBUTION WIDTH 15.6 % (11.6-14.6)
[2021-09-16] MEDS: BLOOD SUGAR DIAGNOSTIC STRIP TEST SCH ×4 (07:15→21:58)
[2021-09-16] MEDS: INSULIN LISPRO 100 UNITS/ML SUBCUT SCH ×4 (07:19→22:08)
[2021-09-16] MEDS: METOLAZONE 5MG TABLET PO SCH (08:28)
[2021-09-16] MEDS: ASPIRIN 325MG EC TABLET PO SCH (08:28)
[2021-09-16] MEDS: FUROSEMIDE 40MG/4ML VIAL IVP SCH ×2 (08:28→17:20)
[2021-09-16] MEDS: IPRATROPIUM/ALBUTEROL 0.5-3(2.5)MG/3ML NEB HHN SCH ×3 (12:19→20:54)
[2021-09-16] MEDS: ENOXAPARIN 30MG/0.3ML SYR SUBCUT SCH (13:19)
[2021-09-16] MEDS: DIPHENHYDRAMINE 25MG CAPSULE PO PRN (21:58)
[2021-09-16] MEDS: FAMOTIDINE 20MG TABLET PO SCH (21:58)
[2021-09-17] VITALS: BP 120/58
[2021-09-17] MEDS: DILTIAZEM HCL 60MG TABLET PO SCH ×3 (00:10→11:30)
[2021-09-17] MEDS ORDERED: LEVE500T98 MT (02:13)
[2021-09-17] MEDS ORDERED: LOSA100T32 PO (02:18)
[2021-09-17] MEDS ORDERED: BUME2TAB7 PO (02:18)
[2021-09-17] MEDS ORDERED: ASPI-1406 PO (02:18)
[2021-09-17] MEDS ORDERED: HYDR-4135 PO (02:18)
[2021-09-17 04:00] VITALS: BP 127/70
[2021-09-17] MEDS: HYDRALAZINE HCL 50MG TABLET PO SCH (06:35)
[2021-09-17 07:14] LABS: BASOPHILS % 0.7 % (0.0-2.0); EOSINOPHILS % 2.5 % (0.0-5.0); HEMATOCRIT. 28.5 % (36.0-48.0); HEMOGLOBIN. 9.1 g/dL (12.0-16.0); LYMPHOCYTES % 12.7 % (20.0-50.0); MEAN CORPUSCULAR HEMOGLOBIN 27.8 pg (28.0-32.0); MEAN CORPUSCULAR VOLUME 86.8 fL (81.0-99.0); MONOCYTES % 7.5 % (2.0-8.0); NEUTROPHILS % 76.6 % (40.0-76.0); PLATELET 380 x1000/uL (130-400); RED BLOOD CELL COUNT 3.28 mill/uL (4.2-5.4); RED CELL DISTRIBUTION WIDTH 15.6 % (11.6-14.6)
[2021-09-17] MEDS: FUROSEMIDE 40MG/4ML VIAL IVP SCH (07:44)
[2021-09-17] MEDS: BLOOD SUGAR DIAGNOSTIC STRIP TEST SCH ×2 (07:55→11:35)
[2021-09-17] MEDS: INSULIN LISPRO 100 UNITS/ML SUBCUT SCH ×2 (07:55→11:35)
[2021-09-17 08:00] VITALS: BP 125/65
[2021-09-17] MEDS: ASPIRIN 325MG EC TABLET PO SCH (09:33)
[2021-09-17] MEDS ORDERED: OMEP20CA14 MT (09:47)
[2021-09-17] MEDS ORDERED: ATOR-2 MT (09:48)
[2021-09-17] MEDS ORDERED: CLOP75TA15 PO (09:49)
[2021-09-17] MEDS ORDERED: FAMO-135 MT (10:02)
[2021-09-17] MEDS: ENOXAPARIN 30MG/0.3ML SYR SUBCUT SCH (11:30)
[2021-09-17 12:00] VITALS: BP 118/68
[2021-09-17 12:25] VITALS: BP 125/65
== END 2021-09-18 00:12 | disposition home or self-care (01) | DRG 133 ==
LOC: ER 03:34 → 7WST 09:42 → ENRESERV 10:13 → 5EST 09-09 11:24
PROVIDERS: ADMIT Internal Medicine; ATTEND Internal Medicine
PROC: 5A09357 Assistance with Respiratory Ventilation, Less than 24 Consecutive Hours, Continuous Positive Airway Pressure (ICD-10-PCS; principal; 2021-09-09)
PROC: 5A09357 Assistance with Respiratory Ventilation, Less than 24 Consecutive Hours, Continuous Positive Airway Pressure (ICD-10-PCS; 2021-09-10)
DX: J96.01 Acute respiratory failure with hypoxia (principal); N17.0 Acute kidney failure with tubular necrosis; I50.33 Acute on chronic diastolic (congestive) heart failure; J81.0 Acute pulmonary edema; E44.0 Moderate protein-calorie malnutrition; I13.0 Hypertensive heart and chronic kidney disease with heart failure and stage 1 through stage 4 chronic kidney disease, or unspecified chronic kidney disease; J44.9 Chronic obstructive pulmonary disease, unspecified; D63.1 Anemia in chronic kidney disease; E11.22 Type 2 diabetes mellitus with diabetic chronic kidney disease; Z20.822 Contact with and (suspected) exposure to COVID-19; N18.9 Chronic kidney disease, unspecified; E83.51 Hypocalcemia; M19.90 Unspecified osteoarthritis, unspecified site; E87.70 Fluid overload, unspecified; E78.5 Hyperlipidemia, unspecified; F17.200 Nicotine dependence, unspecified, uncomplicated; Z68.28 Body mass index [BMI] 28.0-28.9, adult; Z79.899 Other long term (current) drug therapy; Z86.73 Personal history of transient ischemic attack (TIA), and cerebral infarction without residual deficits
CPT/HCPCS: 36415; 36600; 71045; 76770; 80048; 80053; 80061; 82270; 82375; 82550; 82553; 82607; 82746; 82805; 82962; 83036; 83540; 83550; 83735; 83880; 84100; 84439; 84443; 84484; 85025; 85027; 86038; 86160; 87426; 93005; 93306; 93970; 94640; 94660; 99291; C9803; J0885; J1650; J1815; J1940; J2930; J3475; J3490; Q0163

== ENCOUNTER 2021-11-16 20:56 | Inpatient (IN) | payer OTHER ==
[~2021-11-16] VITALS: Ht 177.8 cm; Wt 78.3 kg
[~2021-11-16 20:56] MED LIST changes: +BUME2TAB7 PO; +CLOP75TA15 PO; +FAMO-135 MT; -GABA-529 MT; +HYDR-4135 PO; -HYDR100T26 PO; +LOSA100T32 PO; -NIFE-32 MT; -SEMA0.25 SQ
[2021-11-16] MEDS ORDERED: ASPIRIN 81MG TABLET PO ONE (22:00)
[2021-11-16] MEDS ORDERED: BUMETANIDE 1MG/4ML VIAL IV ONE (22:00)
[2021-11-16] MEDS ORDERED: NITROGLYCERIN 0.4MG TABLET SL SL PRN (22:00)
[2021-11-16 23:30] LABS: CHLORIDE 115 mEq/L (98-107)
[2021-11-16 23:34] LABS: HEMATOCRIT. 33.4 % (36.0-48.0); HEMOGLOBIN. 9.9 g/dL (12.0-16.0); MEAN CORPUSCULAR HEMOGLOBIN 24.2 pg (28.0-32.0); MEAN CORPUSCULAR VOLUME 81.6 fL (81.0-99.0); MEAN PLATELET VOLUME 9.6 fl (7.4-10.4); PLATELET 227 x1000/uL (130-400); RED BLOOD CELL COUNT 4.09 mill/uL (4.2-5.4); RED CELL DISTRIBUTION WIDTH 21.4 % (11.6-14.6)
[2021-11-17] VITALS (7 sets, daily range): BP systolic 98–123; BP diastolic 50–80
[2021-11-17 00:07] LABS: PLATELET ESTIMATE NORMAL
[2021-11-17] MEDS ORDERED: BUMETANIDE 1MG/4ML VIAL IV NR (00:30)
[2021-11-17] MEDS: ASPIRIN 81MG TABLET PO NR ×3 (00:43→08:18)
[2021-11-17] MEDS ORDERED: ACETAMINOPHEN 325MG TABLET PO PRN ×2 (01:45)
[2021-11-17] MEDS ORDERED: GUAIFENESIN 200MG/10ML SUGAR FREE UDC PO PRN (01:45)
[2021-11-17] MEDS ORDERED: ONDANSETRON HCL 4MG/2ML INJ IV PRN (01:45)
[2021-11-17] MEDS ORDERED: BUMETANIDE PO SCH (01:45)
[2021-11-17] MEDS ORDERED: MAGNESIUM/ALUMINUM HYDROXIDE/SIMETHICONE 30ML UDC PO PRN (01:45)
[2021-11-17] MEDS ORDERED: BUMETANIDE 1MG TABLET PO PRN (02:00)
[2021-11-17] MEDS ORDERED: NALOXONE HCL 0.4MG/ML VIAL IV PRN (02:15)
[2021-11-17] MEDS ORDERED: DEXTROSE 50% WATER 50ML SYRINGE IV PRN (04:45)
[2021-11-17] MEDS: HYDRALAZINE HCL 100MG TABLET PO SCH ×3 (05:11→21:09)
[2021-11-17] MEDS: INSULIN LISPRO 100 UNITS/ML SUBCUT SCH ×4 (06:10→20:21)
[2021-11-17] MEDS: BLOOD SUGAR DIAGNOSTIC STRIP TEST SCH ×4 (06:10→20:21)
[2021-11-17] MEDS: CALCIUM CARBONATE/VITAMIN D3 500MG TABLET PO SCH (08:15)
[2021-11-17] MEDS: CLOPIDOGREL 75MG TABLET PO SCH (08:16)
[2021-11-17] MEDS: FAMOTIDINE 20MG TABLET PO SCH (08:16)
[2021-11-17] MEDS: ASPIRIN 81MG EC TABLET PO SCH ×2 (08:17→08:19)
[2021-11-17] MEDS: AMLODIPINE 10MG TABLET PO SCH (08:19)
[2021-11-17 09:44] LABS: CLARITY URINE CLEAR (CLEAR); COLOR URINE YELLOW (YELLOW); KETONES URINE NEGATIVE (NEGATIVE); LEUKOCYTE ESTERASE URINE 3+ (NEGATIVE); NITRITE URINE POSITIVE (NEGATIVE); OCCULT BLOOD URINE NEGATIVE (NEGATIVE); PROTEIN URINE 1+ (NEGATIVE); SPECIFIC GRAVITY URINE 1.015 (1.005-1.030); UROBILINOGEN URINE 0.2 E.U./dL (0.2-1.0)
[2021-11-17 11:03] LABS: CHLORIDE 116 mEq/L (98-107)
[2021-11-17 11:06] LABS: TOTAL IRON BINDING CAPACITY 266 ug/dL (250-450)
[2021-11-17 11:10] LABS: HEMATOCRIT. 32.5 % (36.0-48.0); HEMOGLOBIN. 9.4 g/dL (12.0-16.0); MEAN CORPUSCULAR HEMOGLOBIN 24.1 pg (28.0-32.0); MEAN PLATELET VOLUME 9.7 fl (7.4-10.4); PLATELET 207 x1000/uL (130-400); RED BLOOD CELL COUNT 3.92 mill/uL (4.2-5.4); RED CELL DISTRIBUTION WIDTH 21.8 % (11.6-14.6)
[2021-11-17 11:15] LABS: HDL CHOLESTEROL 50 mg/dL (40-59); LDL CHOLESTEROL 42 mg/dL (5-100)
[2021-11-17 11:47] LABS: FOLIC ACID (FOLATE) SERUM 6.9 ng/mL (>5.38)
[2021-11-17] MEDS ORDERED: CEFTRIAXONE 1,000 MG in DEXTROSE 5% WATER 50 ML IV SCH (15:00)
[2021-11-17] MEDS ORDERED: BUMETANIDE 1MG/4ML VIAL IV SCH (18:00)
[2021-11-17] MEDS: CEFTRIAXONE 1,000 MG in DEXTROSE 5% WATER 50 ML IV SCH (18:03)
[2021-11-17] MEDS: ATORVASTATIN CALCIUM 10MG TABLET PO SCH (21:17)
[2021-11-17] MEDS: HYDROCODONE/ACETAMINOPHEN 5/325MG TABLET PO PRN (21:25)
[2021-11-17 21:33] LABS: PLATELET ESTIMATE NORMAL
[2021-11-18] VITALS: BP 108/66
[2021-11-18] MEDS: BUDESONIDE 0.5MG/2ML NEB HHN SCH ×3 (01:18→21:13)
[2021-11-18] MEDS: IPRATROPIUM/ALBUTEROL 0.5-3(2.5)MG/3ML NEB HHN PRN ×2 (01:22→07:53)
[2021-11-18 04:00] VITALS: BP 135/75
[2021-11-18] MEDS: HYDRALAZINE HCL 100MG TABLET PO SCH ×3 (05:30→21:07)
[2021-11-18] MEDS: BLOOD SUGAR DIAGNOSTIC STRIP TEST SCH ×2 (06:19→12:51)
[2021-11-18] MEDS: INSULIN LISPRO 100 UNITS/ML SUBCUT SCH ×2 (06:19→12:40)
[2021-11-18 06:25] LABS: HEMATOCRIT. 32.1 % (36.0-48.0); HEMOGLOBIN. 9.4 g/dL (12.0-16.0); MEAN CORPUSCULAR HEMOGLOBIN 24.1 pg (28.0-32.0); MEAN CORPUSCULAR VOLUME 82.2 fL (81.0-99.0); MEAN PLATELET VOLUME 9.7 fl (7.4-10.4); PLATELET 201 x1000/uL (130-400); RED CELL DISTRIBUTION WIDTH 21.4 % (11.6-14.6)
[2021-11-18 07:13] LABS: CHLORIDE 114 mEq/L (98-107)
[2021-11-18 08:00] VITALS: BP 123/73
[2021-11-18] MEDS: BUMETANIDE 1MG/4ML VIAL IV SCH ×2 (08:20→16:33)
[2021-11-18] MEDS: FAMOTIDINE 20MG TABLET PO SCH (08:20)
[2021-11-18] MEDS: ASPIRIN 81MG EC TABLET PO SCH (08:20)
[2021-11-18] MEDS: AMLODIPINE 10MG TABLET PO SCH (08:21)
[2021-11-18] MEDS: CALCIUM CARBONATE/VITAMIN D3 500MG TABLET PO SCH (08:21)
[2021-11-18] MEDS: CLOPIDOGREL 75MG TABLET PO SCH (08:21)
[2021-11-18 11:09] LABS: PLATELET ESTIMATE NORMAL
[2021-11-18 12:00] VITALS: BP 131/80
[2021-11-18 16:00] VITALS: BP 115/65
[2021-11-18] MEDS: CEFTRIAXONE 1,000 MG in DEXTROSE 5% WATER 50 ML IV SCH (16:33)
[2021-11-18 20:00] VITALS: BP 130/80
[2021-11-18] MEDS: ATORVASTATIN CALCIUM 10MG TABLET PO SCH (20:13)
[2021-11-18] MEDS: HYDROCODONE/ACETAMINOPHEN 5/325MG TABLET PO PRN (21:50)
[2021-11-19] VITALS: BP 103/43
[2021-11-19 04:00] VITALS: BP 145/72
[2021-11-19] MEDS: HYDRALAZINE HCL 100MG TABLET PO SCH ×3 (05:07→20:40)
[2021-11-19] MEDS: IPRATROPIUM/ALBUTEROL 0.5-3(2.5)MG/3ML NEB HHN PRN ×2 (06:11→11:02)
[2021-11-19] MEDS: CLONIDINE 0.1MG TABLET PO PRN (06:41)
[2021-11-19 06:43] LABS: HEMATOCRIT. 32.7 % (36.0-48.0); HEMOGLOBIN. 9.6 g/dL (12.0-16.0); MEAN CORPUSCULAR HEMOGLOBIN 24.2 pg (28.0-32.0); MEAN CORPUSCULAR VOLUME 82.6 fL (81.0-99.0); MEAN PLATELET VOLUME 9.4 fl (7.4-10.4); PLATELET 213 x1000/uL (130-400); RED BLOOD CELL COUNT 3.96 mill/uL (4.2-5.4); RED CELL DISTRIBUTION WIDTH 21.5 % (11.6-14.6)
[2021-11-19 06:50] LABS: CHLORIDE 115 mEq/L (98-107)
[2021-11-19 08:00] VITALS: BP 146/84
[2021-11-19] MEDS: CALCIUM CARBONATE/VITAMIN D3 500MG TABLET PO SCH (08:26)
[2021-11-19] MEDS: AMLODIPINE 10MG TABLET PO SCH (08:26)
[2021-11-19] MEDS: FAMOTIDINE 20MG TABLET PO SCH (08:26)
[2021-11-19] MEDS: ASPIRIN 81MG EC TABLET PO SCH (08:26)
[2021-11-19] MEDS: CLOPIDOGREL 75MG TABLET PO SCH (08:26)
[2021-11-19] MEDS: BUDESONIDE 0.5MG/2ML NEB HHN SCH ×2 (11:02→21:45)
[2021-11-19 12:00] VITALS: BP 124/67
[2021-11-19] MEDS: BUMETANIDE 1MG/4ML VIAL IV SCH ×2 (12:18→18:56)
[2021-11-19] MEDS: METHYLPREDNISOLONE SOD SUCC 40 MG/ML VIAL IV SCH ×3 (12:19→20:40)
[2021-11-19 13:10] LABS: PLATELET ESTIMATE NORMAL
[2021-11-19] MEDS: IPRATROPIUM/ALBUTEROL 0.5-3(2.5)MG/3ML NEB HHN SCH ×2 (14:45→21:44)
[2021-11-19 16:00] VITALS: BP 126/66
[2021-11-19] MEDS: CEFTRIAXONE 1,000 MG in DEXTROSE 5% WATER 50 ML IV SCH (16:49)
[2021-11-19 20:00] VITALS: BP 146/93
[2021-11-19] MEDS: ATORVASTATIN CALCIUM 10MG TABLET PO SCH (20:39)
[2021-11-20] VITALS: BP 136/83
[2021-11-20] MEDS: HYDROCODONE/ACETAMINOPHEN 5/325MG TABLET PO PRN (00:08)
[2021-11-20] MEDS: IPRATROPIUM/ALBUTEROL 0.5-3(2.5)MG/3ML NEB HHN SCH ×3 (01:58→15:04)
[2021-11-20 04:00] VITALS: BP 137/72
[2021-11-20] MEDS: METHYLPREDNISOLONE SOD SUCC 40 MG/ML VIAL IV SCH ×3 (05:26→22:22)
[2021-11-20] MEDS: DOCUSATE SODIUM 100MG CAPSULE PO PRN (05:26)
[2021-11-20] MEDS: HYDRALAZINE HCL 100MG TABLET PO SCH ×3 (05:27→22:00)
[2021-11-20] MEDS: BUDESONIDE 0.5MG/2ML NEB HHN SCH ×2 (07:23→21:57)
[2021-11-20 08:00] VITALS: BP 143/70
[2021-11-20] MEDS: CALCIUM CARBONATE/VITAMIN D3 500MG TABLET PO SCH (09:36)
[2021-11-20] MEDS: CLOPIDOGREL 75MG TABLET PO SCH (09:36)
[2021-11-20] MEDS: AMLODIPINE 10MG TABLET PO SCH (09:36)
[2021-11-20] MEDS: FAMOTIDINE 20MG TABLET PO SCH (09:40)
[2021-11-20] MEDS: ASPIRIN 81MG EC TABLET PO SCH (09:42)
[2021-11-20] MEDS: BUMETANIDE 1MG/4ML VIAL IV SCH ×2 (10:19→18:03)
[2021-11-20 12:00] VITALS: BP 135/83
[2021-11-20] MEDS: CEFTRIAXONE 1,000 MG in DEXTROSE 5% WATER 50 ML IV SCH (15:19)
[2021-11-20 16:00] VITALS: BP 134/84
[2021-11-20 16:55] LABS: HEMATOCRIT. 30.9 % (36.0-48.0); HEMOGLOBIN. 9.3 g/dL (12.0-16.0); MEAN CORPUSCULAR HEMOGLOBIN 24.4 pg (28.0-32.0); MEAN CORPUSCULAR VOLUME 81.1 fL (81.0-99.0); MEAN PLATELET VOLUME 9.3 fl (7.4-10.4); PLATELET 210 x1000/uL (130-400); RED BLOOD CELL COUNT 3.81 mill/uL (4.2-5.4); RED CELL DISTRIBUTION WIDTH 21.5 % (11.6-14.6)
[2021-11-20 17:05] LABS: CHLORIDE 112 mEq/L (98-107)
[2021-11-20 18:56] LABS: PLATELET ESTIMATE NORMAL
[2021-11-20 20:00] VITALS: BP 111/87
[2021-11-20] MEDS: ATORVASTATIN CALCIUM 10MG TABLET PO SCH (22:22)
[2021-11-21] VITALS: BP 132/82
[2021-11-21] MEDS: IPRATROPIUM/ALBUTEROL 0.5-3(2.5)MG/3ML NEB HHN SCH ×4 (02:28→20:06)
[2021-11-21 04:00] VITALS: BP 116/70
[2021-11-21] MEDS: HYDRALAZINE HCL 100MG TABLET PO SCH ×3 (05:53→21:53)
[2021-11-21] MEDS: METHYLPREDNISOLONE SOD SUCC 40 MG/ML VIAL IV SCH ×3 (05:53→21:52)
[2021-11-21 08:00] VITALS: BP 127/72
[2021-11-21] MEDS: CALCIUM CARBONATE/VITAMIN D3 500MG TABLET PO SCH ×2 (09:00→09:24)
[2021-11-21] MEDS: BUMETANIDE 1MG/4ML VIAL IV SCH ×2 (09:24→16:28)
[2021-11-21] MEDS: CLOPIDOGREL 75MG TABLET PO SCH (09:24)
[2021-11-21] MEDS: FAMOTIDINE 20MG TABLET PO SCH (09:24)
[2021-11-21] MEDS: ASPIRIN 81MG EC TABLET PO SCH (09:25)
[2021-11-21] MEDS: AMLODIPINE 10MG TABLET PO SCH (09:25)
[2021-11-21 12:00] VITALS: BP 132/70
[2021-11-21] MEDS: LACTULOSE 20G/30ML UDC PO SCH ×2 (14:46→21:52)
[2021-11-21 16:00] VITALS: BP 131/65
[2021-11-21] MEDS: CEFTRIAXONE 1,000 MG in DEXTROSE 5% WATER 50 ML IV SCH (16:26)
[2021-11-21 20:00] VITALS: BP 146/71
[2021-11-21] MEDS: ATORVASTATIN CALCIUM 10MG TABLET PO SCH (21:52)
[2021-11-22] VITALS (32 sets, daily range): BP systolic 115–178; BP diastolic 47–81
[2021-11-22] MEDS: IPRATROPIUM/ALBUTEROL 0.5-3(2.5)MG/3ML NEB HHN SCH ×3 (00:50→14:21)
[2021-11-22] MEDS: METHYLPREDNISOLONE SOD SUCC 40 MG/ML VIAL IV SCH ×3 (06:24→21:58)
[2021-11-22] MEDS: HYDRALAZINE HCL 100MG TABLET PO SCH ×3 (06:24→21:58)
[2021-11-22 06:47] LABS: HEMATOCRIT. 31.3 % (36.0-48.0); HEMOGLOBIN. 9.2 g/dL (12.0-16.0); MEAN CORPUSCULAR VOLUME 81.4 fL (81.0-99.0); MEAN PLATELET VOLUME 9.9 fl (7.4-10.4); PLATELET 203 x1000/uL (130-400); RED BLOOD CELL COUNT 3.85 mill/uL (4.2-5.4); RED CELL DISTRIBUTION WIDTH 21.8 % (11.6-14.6)
[2021-11-22] MEDS: LACTULOSE 20G/30ML UDC PO SCH (08:42)
[2021-11-22] MEDS: ASPIRIN 81MG EC TABLET PO SCH (08:42)
[2021-11-22] MEDS: CLOPIDOGREL 75MG TABLET PO SCH (08:43)
[2021-11-22] MEDS: FAMOTIDINE 20MG TABLET PO SCH (08:43)
[2021-11-22] MEDS: POLYETHYLENE GLYCOL 3350 (17GM) 1 DOSE PACK PO SCH (08:43)
[2021-11-22] MEDS: AMLODIPINE 10MG TABLET PO SCH (08:43)
[2021-11-22] MEDS: BUMETANIDE 1MG/4ML VIAL IV SCH ×2 (08:44→17:00)
[2021-11-22 10:16] LABS: PLATELET ESTIMATE NORMAL
[2021-11-22] MEDS: CEFTRIAXONE 1,000 MG in DEXTROSE 5% WATER 50 ML IV SCH (16:00)
[2021-11-22] MEDS ORDERED: BUPIVACAINE HCL/PF 0.5% (5MG/ML) 10ML ONE (16:05)
[2021-11-22] MEDS ORDERED: SKIN ADHESIVE 0.7 GM EA TOP ONE (16:05)
[2021-11-22] MEDS ORDERED: ETOMIDATE 2MG/ML 10ML VIAL IV ONE (16:17)
[2021-11-22] MEDS ORDERED: ROCURONIUM BROMIDE 10MG/ML VIAL 5ML IV ONE (16:18)
[2021-11-22] MEDS ORDERED: VECURONIUM BROMIDE 10 MG/VIAL IV ONE (16:18)
[2021-11-22] MEDS ORDERED: PHENYLEPHRINE HCL 10 MG/ML 1ML (IV VIAL) IV ONE (16:20)
[2021-11-22] MEDS ORDERED: FENTANYL CITRATE/PF 50MCG/ML 2ML VIAL ONE (16:23)
[2021-11-22] MEDS ORDERED: ALBUMIN HUMAN 12.5G/250ML (5%) IV ONE (16:37)
[2021-11-22] MEDS ORDERED: TALC 3 GM VIAL IX NR ×2 (17:00)
[2021-11-22] MEDS ORDERED: PROPOFOL 10MG/ML 100ML 0 ML IV ONE (17:33)
[2021-11-22] MEDS ORDERED: DEXAMETHASONE 4MG/ML 1ML VIAL ONE (17:34)
[2021-11-22] MEDS ORDERED: HYDROMORPHONE HCL/PF 2MG/ML CPJ IV PRN (18:45)
[2021-11-22] MEDS: HYDROMORPHONE HCL/PF 2MG/ML CPJ IV PRN ×2 (18:59→19:45)
[2021-11-22] MEDS ORDERED: NALOXONE HCL 0.4MG/ML VIAL IV PRN (19:00)
[2021-11-22 21:04] LABS: HEMATOCRIT. 30.1 % (36.0-48.0); HEMOGLOBIN. 8.9 g/dL (12.0-16.0); MEAN CORPUSCULAR HEMOGLOBIN 23.8 pg (28.0-32.0); MEAN CORPUSCULAR VOLUME 80.7 fL (81.0-99.0); MEAN PLATELET VOLUME 9.4 fl (7.4-10.4); PLATELET 213 x1000/uL (130-400); RED BLOOD CELL COUNT 3.74 mill/uL (4.2-5.4); RED CELL DISTRIBUTION WIDTH 21.7 % (11.6-14.6)
[2021-11-22 21:15] LABS: INR 1.1; PARTIAL THROMBOPLASTIN TIME 24.8 sec (23.4-31.0)
[2021-11-22 21:25] LABS: PLATELET ESTIMATE NORMAL
[2021-11-22] MEDS: ATORVASTATIN CALCIUM 10MG TABLET PO SCH (21:58)
[2021-11-23] VITALS (52 sets, daily range): BP systolic 106–180; BP diastolic 51–163
[2021-11-23] MEDS: MORPHINE SULFATE 2 MG/ML CPJ (NOT FOR IM USE) IV PRN ×4 (01:28→17:10)
[2021-11-23] MEDS: OXYCODONE HCL/ACETAMINOPHEN 5/325MG TABLET PO PRN ×3 (02:19→15:33)
[2021-11-23 05:28] LABS: HEMATOCRIT. 32.3 % (36.0-48.0); HEMOGLOBIN. 9.5 g/dL (12.0-16.0); MEAN CORPUSCULAR HEMOGLOBIN 23.9 pg (28.0-32.0); MEAN CORPUSCULAR VOLUME 81.4 fL (81.0-99.0); MEAN PLATELET VOLUME 9.8 fl (7.4-10.4); PLATELET 215 x1000/uL (130-400); RED BLOOD CELL COUNT 3.97 mill/uL (4.2-5.4); RED CELL DISTRIBUTION WIDTH 21.9 % (11.6-14.6)
[2021-11-23] MEDS: METHYLPREDNISOLONE SOD SUCC 40 MG/ML VIAL IV SCH ×3 (06:45→21:22)
[2021-11-23] MEDS: HYDRALAZINE HCL 100MG TABLET PO SCH ×3 (06:45→21:22)
[2021-11-23 07:31] LABS: PLATELET ESTIMATE NORMAL
[2021-11-23] MEDS: IPRATROPIUM/ALBUTEROL 0.5-3(2.5)MG/3ML NEB HHN SCH ×2 (08:47→20:58)
[2021-11-23] MEDS: DOCUSATE SODIUM 100MG CAPSULE PO PRN (09:03)
[2021-11-23] MEDS: AMLODIPINE 10MG TABLET PO SCH (09:03)
[2021-11-23] MEDS: CLOPIDOGREL 75MG TABLET PO SCH (09:03)
[2021-11-23] MEDS: BUMETANIDE 1MG/4ML VIAL IV SCH ×2 (09:03→17:10)
[2021-11-23] MEDS: FAMOTIDINE 20MG TABLET PO SCH (09:03)
[2021-11-23] MEDS: ASPIRIN 81MG EC TABLET PO SCH (09:04)
[2021-11-23] MEDS: POLYETHYLENE GLYCOL 3350 (17GM) 1 DOSE PACK PO SCH (09:07)
[2021-11-23] MEDS: CALCIUM CARBONATE/VITAMIN D3 500MG TABLET PO SCH (12:15)
[2021-11-23] MEDS: ATORVASTATIN CALCIUM 10MG TABLET PO SCH (21:36)
[2021-11-24] VITALS (48 sets, daily range): BP systolic 140–164; BP diastolic 59–100
[2021-11-24] MEDS: IPRATROPIUM/ALBUTEROL 0.5-3(2.5)MG/3ML NEB HHN SCH ×3 (02:11→20:55)
[2021-11-24] MEDS: MORPHINE SULFATE 2 MG/ML CPJ (NOT FOR IM USE) IV PRN ×3 (03:38→16:45)
[2021-11-24 06:12] LABS: HEMATOCRIT. 33.8 % (36.0-48.0); MEAN CORPUSCULAR VOLUME 81.4 fL (81.0-99.0); PLATELET 215 x1000/uL (130-400); RED BLOOD CELL COUNT 4.16 mill/uL (4.2-5.4)
[2021-11-24] MEDS: METHYLPREDNISOLONE SOD SUCC 40 MG/ML VIAL IV SCH ×3 (06:29→21:00)
[2021-11-24] MEDS: HYDRALAZINE HCL 100MG TABLET PO SCH ×3 (06:30→21:15)
[2021-11-24 07:49] LABS: PLATELET ESTIMATE NORMAL
[2021-11-24] MEDS ORDERED: BUMETANIDE 1MG/4ML VIAL IV SCH (09:00)
[2021-11-24] MEDS ORDERED: SODIUM POLYSTYRENE SULFONATE 15 G/60 ML BOT PO SCH (09:00)
[2021-11-24] MEDS: ASPIRIN 81MG EC TABLET PO SCH (09:12)
[2021-11-24] MEDS: FAMOTIDINE 20MG TABLET PO SCH (09:12)
[2021-11-24] MEDS: CLOPIDOGREL 75MG TABLET PO SCH (09:13)
[2021-11-24] MEDS: AMLODIPINE 10MG TABLET PO SCH (09:13)
[2021-11-24] MEDS: POLYETHYLENE GLYCOL 3350 (17GM) 1 DOSE PACK PO SCH (09:13)
[2021-11-24] MEDS: CALCIUM CARBONATE/VITAMIN D3 500MG TABLET PO SCH (09:13)
[2021-11-24] MEDS: OXYCODONE HCL/ACETAMINOPHEN 5/325MG TABLET PO PRN ×2 (12:07→20:08)
[2021-11-24] MEDS: ATORVASTATIN CALCIUM 10MG TABLET PO SCH (21:15)
[2021-11-25] VITALS (48 sets, daily range): BP systolic 135–173; BP diastolic 69–88
[2021-11-25] MEDS: IPRATROPIUM/ALBUTEROL 0.5-3(2.5)MG/3ML NEB HHN SCH ×4 (02:20→20:16)
[2021-11-25 05:35] LABS: HEMATOCRIT. 30.9 % (36.0-48.0); HEMOGLOBIN. 9.5 g/dL (12.0-16.0); MEAN CORPUSCULAR HEMOGLOBIN 24.6 pg (28.0-32.0); MEAN CORPUSCULAR VOLUME 80.2 fL (81.0-99.0); MEAN PLATELET VOLUME 10.2 fl (7.4-10.4); PLATELET 171 x1000/uL (130-400); RED BLOOD CELL COUNT 3.86 mill/uL (4.2-5.4); RED CELL DISTRIBUTION WIDTH 21.6 % (11.6-14.6)
[2021-11-25] MEDS: HYDRALAZINE HCL 100MG TABLET PO SCH ×3 (06:20→23:45)
[2021-11-25 07:23] LABS: PLATELET ESTIMATE NORMAL
[2021-11-25] MEDS: CALCIUM CARBONATE/VITAMIN D3 500MG TABLET PO SCH (08:19)
[2021-11-25] MEDS: AMLODIPINE 10MG TABLET PO SCH (08:19)
[2021-11-25] MEDS: POLYETHYLENE GLYCOL 3350 (17GM) 1 DOSE PACK PO SCH (08:19)
[2021-11-25] MEDS: ASPIRIN 81MG EC TABLET PO SCH (08:19)
[2021-11-25] MEDS: CLOPIDOGREL 75MG TABLET PO SCH (08:19)
[2021-11-25] MEDS: METHYLPREDNISOLONE SOD SUCC 40 MG/ML VIAL IV SCH (08:20)
[2021-11-25] MEDS: FAMOTIDINE 20MG TABLET PO SCH (08:28)
[2021-11-25] MEDS ORDERED: SODIUM POLYSTYRENE SULFONATE 15 G/60 ML BOT PO NR (09:30)
[2021-11-25] MEDS ORDERED: LIDOCAINE HCL/PF 1% 10 MG/ML 5ML VIAL ONE (13:14)
[2021-11-25] MEDS: SODIUM CHLORIDE 0.9% 1,000 ML IV SCH (14:17)
[2021-11-25] MEDS: ATORVASTATIN CALCIUM 10MG TABLET PO SCH (20:48)
[2021-11-25] MEDS: OXYCODONE HCL/ACETAMINOPHEN 5/325MG TABLET PO PRN ×2 (20:49→20:53)
[2021-11-25 21:13] LABS: HEPATITIS B SURFACE ANTIGEN NEGATIVE
[2021-11-26] VITALS (80 sets, daily range): BP systolic 135–169; BP diastolic 59–91
[2021-11-26] MEDS: MORPHINE SULFATE 2 MG/ML CPJ (NOT FOR IM USE) IV PRN (01:15)
[2021-11-26] MEDS: IPRATROPIUM/ALBUTEROL 0.5-3(2.5)MG/3ML NEB HHN SCH ×4 (02:09→20:48)
[2021-11-26 06:09] LABS: HEMOGLOBIN. 9.8 g/dL (12.0-16.0); MEAN CORPUSCULAR HEMOGLOBIN 23.9 pg (28.0-32.0); MEAN PLATELET VOLUME 9.4 fl (7.4-10.4); PLATELET 189 x1000/uL (130-400); RED CELL DISTRIBUTION WIDTH 21.5 % (11.6-14.6)
[2021-11-26] MEDS: HYDRALAZINE HCL 100MG TABLET PO SCH ×3 (06:34→21:47)
[2021-11-26 07:38] LABS: PLATELET ESTIMATE NORMAL
[2021-11-26] MEDS: SODIUM CHLORIDE 0.9% 1,000 ML IV SCH (08:09)
[2021-11-26] MEDS: FAMOTIDINE 20MG TABLET PO SCH (08:38)
[2021-11-26] MEDS: METHYLPREDNISOLONE SOD SUCC 40 MG/ML VIAL IV SCH (08:38)
[2021-11-26] MEDS: ASPIRIN 81MG EC TABLET PO SCH (08:38)
[2021-11-26] MEDS: AMLODIPINE 10MG TABLET PO SCH (08:38)
[2021-11-26] MEDS: CLOPIDOGREL 75MG TABLET PO SCH (08:38)
[2021-11-26] MEDS: POLYETHYLENE GLYCOL 3350 (17GM) 1 DOSE PACK PO SCH (08:38)
[2021-11-26] MEDS: CALCIUM CARBONATE/VITAMIN D3 500MG TABLET PO SCH (08:38)
[2021-11-26] MEDS: OXYCODONE HCL/ACETAMINOPHEN 5/325MG TABLET PO PRN (19:39)
[2021-11-26] MEDS: ATORVASTATIN CALCIUM 10MG TABLET PO SCH (21:47)
[2021-11-27] VITALS (34 sets, daily range): BP systolic 118–171; BP diastolic 28–102
[2021-11-27] MEDS: IPRATROPIUM/ALBUTEROL 0.5-3(2.5)MG/3ML NEB HHN SCH ×4 (00:59→19:38)
[2021-11-27 05:27] LABS: BASOPHILS % 0.6 % (0.0-2.0); LYMPHOCYTES % 11.9 % (20.0-50.0); MEAN CORPUSCULAR HEMOGLOBIN 23.7 pg (28.0-32.0); MEAN CORPUSCULAR VOLUME 78.1 fL (81.0-99.0); MEAN PLATELET VOLUME 9.9 fl (7.4-10.4); MONOCYTES % 5.7 % (2.0-8.0); NEUTROPHILS % 80.8 % (40.0-76.0); PLATELET 191 x1000/uL (130-400); RED BLOOD CELL COUNT 4.23 mill/uL (4.2-5.4); RED CELL DISTRIBUTION WIDTH 22.1 % (11.6-14.6)
[2021-11-27] MEDS: HYDRALAZINE HCL 100MG TABLET PO SCH ×3 (06:09→23:01)
[2021-11-27] MEDS: SODIUM CHLORIDE 0.9% 1,000 ML IV SCH (06:11)
[2021-11-27] MEDS: ASPIRIN 81MG EC TABLET PO SCH (08:44)
[2021-11-27] MEDS: CLOPIDOGREL 75MG TABLET PO SCH (08:44)
[2021-11-27] MEDS: CALCIUM CARBONATE/VITAMIN D3 500MG TABLET PO SCH (08:44)
[2021-11-27] MEDS: AMLODIPINE 10MG TABLET PO SCH (08:44)
[2021-11-27] MEDS: FAMOTIDINE 20MG TABLET PO SCH (08:44)
[2021-11-27] MEDS: METHYLPREDNISOLONE SOD SUCC 40 MG/ML VIAL IV SCH (08:44)
[2021-11-27] MEDS: POLYETHYLENE GLYCOL 3350 (17GM) 1 DOSE PACK PO SCH (08:45)
[2021-11-27] MEDS: CLONIDINE 0.1MG TABLET PO PRN (11:32)
[2021-11-27] MEDS: OXYCODONE HCL/ACETAMINOPHEN 5/325MG TABLET PO PRN ×2 (14:48→21:21)
[2021-11-27] MEDS ORDERED: CARVEDILOL 12.5MG TABLET PO NR (15:30)
[2021-11-27] MEDS: PIPERACILLIN/TAZOBACTAM 3.375 G in DEXTROSE 5% WATER 50 ML IV SCH (16:17)
[2021-11-27 17:58] LABS: CLARITY URINE CLEAR (CLEAR); COLOR URINE YELLOW (YELLOW); KETONES URINE TRACE (NEGATIVE); LEUKOCYTE ESTERASE URINE NEGATIVE (NEGATIVE); NITRITE URINE NEGATIVE (NEGATIVE); OCCULT BLOOD URINE NEGATIVE (NEGATIVE); PROTEIN URINE 2+ (NEGATIVE); SPECIFIC GRAVITY URINE 1.016 (1.005-1.030); UROBILINOGEN URINE 0.2 E.U./dL (0.2-1.0)
[2021-11-27] MEDS ORDERED: NALOXONE HCL 0.4 MG/ML 1ML VIAL IV PRN (21:15)
[2021-11-27] MEDS ORDERED: MORPHINE SULFATE 2 MG/ML CPJ (NOT FOR IM USE) IV PRN (21:15)
[2021-11-27] MEDS ORDERED: OXYCODONE HCL/ACETAMINOPHEN 5/325MG TABLET PO PRN (21:15)
[2021-11-27] MEDS: CARVEDILOL 12.5MG TABLET PO SCH (21:21)
[2021-11-27] MEDS: ATORVASTATIN CALCIUM 10MG TABLET PO SCH (21:22)
[2021-11-28] VITALS (27 sets, daily range): BP systolic 133–167; BP diastolic 69–91
[2021-11-28] MEDS: IPRATROPIUM/ALBUTEROL 0.5-3(2.5)MG/3ML NEB HHN SCH ×4 (01:08→20:34)
[2021-11-28 05:36] LABS: BASOPHILS % 0.1 % (0.0-2.0); EOSINOPHILS % 1.5 % (0.0-5.0); HEMATOCRIT. 33.5 % (36.0-48.0); HEMOGLOBIN. 10.2 g/dL (12.0-16.0); LYMPHOCYTES % 12.1 % (20.0-50.0); MEAN CORPUSCULAR VOLUME 79.1 fL (81.0-99.0); MEAN PLATELET VOLUME 9.7 fl (7.4-10.4); MONOCYTES % 6.3 % (2.0-8.0); PLATELET 192 x1000/uL (130-400); RED BLOOD CELL COUNT 4.23 mill/uL (4.2-5.4); RED CELL DISTRIBUTION WIDTH 21.6 % (11.6-14.6)
[2021-11-28] MEDS: PIPERACILLIN/TAZOBACTAM 3.375 G in DEXTROSE 5% WATER 50 ML IV SCH ×2 (06:26→17:19)
[2021-11-28] MEDS: HYDRALAZINE HCL 100MG TABLET PO SCH ×3 (06:27→21:33)
[2021-11-28] MEDS: POLYETHYLENE GLYCOL 3350 (17GM) 1 DOSE PACK PO SCH (09:00)
[2021-11-28] MEDS: CALCIUM CARBONATE/VITAMIN D3 500MG TABLET PO SCH (09:28)
[2021-11-28] MEDS: CARVEDILOL 12.5MG TABLET PO SCH ×2 (09:28→21:33)
[2021-11-28] MEDS: CLOPIDOGREL 75MG TABLET PO SCH (09:28)
[2021-11-28] MEDS: DOCUSATE SODIUM 100MG CAPSULE PO PRN (09:28)
[2021-11-28] MEDS: PREDNISONE 10MG TABLET PO SCH ×2 (09:28→16:06)
[2021-11-28] MEDS: FAMOTIDINE 20MG TABLET PO SCH (09:29)
[2021-11-28] MEDS: AMLODIPINE 10MG TABLET PO SCH (09:29)
[2021-11-28] MEDS: ASPIRIN 81MG EC TABLET PO SCH (09:30)
[2021-11-28] MEDS: OXYCODONE HCL/ACETAMINOPHEN 5/325MG TABLET PO PRN (19:41)
[2021-11-28] MEDS: ATORVASTATIN CALCIUM 10MG TABLET PO SCH (21:32)
[2021-11-29] VITALS (12 sets, daily range): BP systolic 124–167; BP diastolic 65–88
[2021-11-29] MEDS: IPRATROPIUM/ALBUTEROL 0.5-3(2.5)MG/3ML NEB HHN SCH ×4 (02:35→20:21)
[2021-11-29] MEDS: PIPERACILLIN/TAZOBACTAM 3.375 G in DEXTROSE 5% WATER 50 ML IV SCH ×2 (06:30→17:40)
[2021-11-29] MEDS: HYDRALAZINE HCL 100MG TABLET PO SCH ×3 (06:31→21:23)
[2021-11-29 07:10] LABS: BASOPHILS % 0.3 % (0.0-2.0); EOSINOPHILS % 1.1 % (0.0-5.0); HEMATOCRIT. 32.2 % (36.0-48.0); LYMPHOCYTES % 10.4 % (20.0-50.0); MEAN CORPUSCULAR VOLUME 77.6 fL (81.0-99.0); MEAN PLATELET VOLUME 9.9 fl (7.4-10.4); MONOCYTES % 4.8 % (2.0-8.0); NEUTROPHILS % 83.4 % (40.0-76.0); PLATELET 185 x1000/uL (130-400); RED BLOOD CELL COUNT 4.15 mill/uL (4.2-5.4); RED CELL DISTRIBUTION WIDTH 21.5 % (11.6-14.6)
[2021-11-29] MEDS: FAMOTIDINE 20MG TABLET PO SCH (08:33)
[2021-11-29] MEDS: CARVEDILOL 12.5MG TABLET PO SCH ×2 (08:33→21:22)
[2021-11-29] MEDS: CLOPIDOGREL 75MG TABLET PO SCH (08:33)
[2021-11-29] MEDS: POLYETHYLENE GLYCOL 3350 (17GM) 1 DOSE PACK PO SCH (08:33)
[2021-11-29] MEDS: PREDNISONE 10MG TABLET PO SCH ×2 (08:33→17:40)
[2021-11-29] MEDS: AMLODIPINE 10MG TABLET PO SCH (08:34)
[2021-11-29] MEDS: ASPIRIN 81MG EC TABLET PO SCH (08:34)
[2021-11-29] MEDS: OXYCODONE HCL/ACETAMINOPHEN 5/325MG TABLET PO PRN ×2 (09:19→17:46)
[2021-11-29] MEDS: CALCIUM CARBONATE/VITAMIN D3 500MG TABLET PO SCH (10:43)
[2021-11-29] MEDS: ATORVASTATIN CALCIUM 10MG TABLET PO SCH (21:22)
[2021-11-30] VITALS (13 sets, daily range): BP systolic 119–149; BP diastolic 66–84
[2021-11-30] MEDS: IPRATROPIUM/ALBUTEROL 0.5-3(2.5)MG/3ML NEB HHN SCH ×4 (02:11→20:02)
[2021-11-30] MEDS: PIPERACILLIN/TAZOBACTAM 3.375 G in DEXTROSE 5% WATER 50 ML IV SCH (06:42)
[2021-11-30] MEDS: HYDRALAZINE HCL 100MG TABLET PO SCH ×3 (06:42→21:57)
[2021-11-30 07:05] LABS: BASOPHILS % 0.3 % (0.0-2.0); HEMATOCRIT. 31.7 % (36.0-48.0); HEMOGLOBIN. 9.9 g/dL (12.0-16.0); LYMPHOCYTES % 9.5 % (20.0-50.0); MEAN CORPUSCULAR HEMOGLOBIN 24.2 pg (28.0-32.0); MEAN CORPUSCULAR VOLUME 77.8 fL (81.0-99.0); MEAN PLATELET VOLUME 9.9 fl (7.4-10.4); MONOCYTES % 5.3 % (2.0-8.0); NEUTROPHILS % 83.9 % (40.0-76.0); PLATELET 191 x1000/uL (130-400); RED BLOOD CELL COUNT 4.08 mill/uL (4.2-5.4); RED CELL DISTRIBUTION WIDTH 21.7 % (11.6-14.6)
[2021-11-30] MEDS: DOCUSATE SODIUM 100MG CAPSULE PO PRN (09:02)
[2021-11-30] MEDS: PREDNISONE 10MG TABLET PO SCH ×2 (09:02→18:01)
[2021-11-30] MEDS: CLOPIDOGREL 75MG TABLET PO SCH (09:02)
[2021-11-30] MEDS: ASPIRIN 81MG EC TABLET PO SCH (09:02)
[2021-11-30] MEDS: CALCIUM CARBONATE/VITAMIN D3 500MG TABLET PO SCH (09:02)
[2021-11-30] MEDS: POLYETHYLENE GLYCOL 3350 (17GM) 1 DOSE PACK PO SCH ×2 (09:03→09:06)
[2021-11-30] MEDS: FAMOTIDINE 20MG TABLET PO SCH (09:03)
[2021-11-30] MEDS: CARVEDILOL 12.5MG TABLET PO SCH ×2 (09:03→21:57)
[2021-11-30] MEDS: AMLODIPINE 10MG TABLET PO SCH (09:03)
[2021-11-30] MEDS: PIPERACILLIN/TAZOBACTAM 3.375G in DEXT 5% WATER 50ML IV SCH ×2 (14:39→21:58)
[2021-11-30] MEDS ORDERED: DEXTROSE 50% WATER 50ML SYRINGE IV PRN (17:00)
[2021-11-30] MEDS ORDERED: INSULIN LISPRO 100 UNITS/ML SUBCUT SCH (17:20)
[2021-11-30] MEDS ORDERED: BLOOD SUGAR DIAGNOSTIC STRIP TEST SCH (21:00)
[2021-11-30] MEDS: ATORVASTATIN CALCIUM 10MG TABLET PO SCH (21:57)
[2021-12-01] VITALS (9 sets, daily range): BP systolic 119–146; BP diastolic 61–78
[2021-12-01] MEDS: IPRATROPIUM/ALBUTEROL 0.5-3(2.5)MG/3ML NEB HHN SCH ×4 (02:06→21:47)
[2021-12-01] MEDS: HYDRALAZINE HCL 100MG TABLET PO SCH ×3 (06:27→22:20)
[2021-12-01] MEDS: PIPERACILLIN/TAZOBACTAM 3.375G in DEXT 5% WATER 50ML IV SCH ×3 (06:27→22:39)
[2021-12-01 07:17] LABS: BASOPHILS % 0.2 % (0.0-2.0); EOSINOPHILS % 0.5 % (0.0-5.0); HEMATOCRIT. 29.5 % (36.0-48.0); LYMPHOCYTES % 8.3 % (20.0-50.0); MEAN CORPUSCULAR HEMOGLOBIN 23.9 pg (28.0-32.0); MEAN CORPUSCULAR VOLUME 78.2 fL (81.0-99.0); MONOCYTES % 3.8 % (2.0-8.0); NEUTROPHILS % 87.2 % (40.0-76.0); PLATELET 165 x1000/uL (130-400); RED BLOOD CELL COUNT 3.77 mill/uL (4.2-5.4); RED CELL DISTRIBUTION WIDTH 21.9 % (11.6-14.6)
[2021-12-01] MEDS: PREDNISONE 10MG TABLET PO SCH ×2 (09:13→17:31)
[2021-12-01] MEDS: CLOPIDOGREL 75MG TABLET PO SCH (09:13)
[2021-12-01] MEDS: FAMOTIDINE 20MG TABLET PO SCH (09:13)
[2021-12-01] MEDS: ASPIRIN 81MG EC TABLET PO SCH (09:14)
[2021-12-01] MEDS: AMLODIPINE 10MG TABLET PO SCH (09:14)
[2021-12-01] MEDS: CALCIUM CARBONATE/VITAMIN D3 500MG TABLET PO SCH (09:14)
[2021-12-01] MEDS: CARVEDILOL 12.5MG TABLET PO SCH ×2 (09:14→22:20)
[2021-12-01] MEDS: ATORVASTATIN CALCIUM 10MG TABLET PO SCH (22:19)
[2021-12-02] VITALS: BP 143/82
[2021-12-02] MEDS: IPRATROPIUM/ALBUTEROL 0.5-3(2.5)MG/3ML NEB HHN SCH ×3 (00:57→21:07)
[2021-12-02 04:00] VITALS: BP 138/70
[2021-12-02] MEDS: PIPERACILLIN/TAZOBACTAM 3.375G in DEXT 5% WATER 50ML IV SCH ×3 (05:23→21:41)
[2021-12-02] MEDS: HYDRALAZINE HCL 100MG TABLET PO SCH ×3 (05:23→21:40)
[2021-12-02 08:00] VITALS: BP_SYST 150; BP_DIAS 80; BP_DIAS 82
[2021-12-02] MEDS: AMLODIPINE 10MG TABLET PO SCH (09:05)
[2021-12-02] MEDS: CARVEDILOL 12.5MG TABLET PO SCH ×2 (09:05→21:41)
[2021-12-02] MEDS: ASPIRIN 81MG EC TABLET PO SCH (09:05)
[2021-12-02] MEDS: PREDNISONE 10MG TABLET PO SCH ×2 (09:06→17:00)
[2021-12-02] MEDS: CALCIUM CARBONATE/VITAMIN D3 500MG TABLET PO SCH (09:06)
[2021-12-02] MEDS: POLYETHYLENE GLYCOL 3350 (17GM) 1 DOSE PACK PO SCH (09:06)
[2021-12-02] MEDS: FAMOTIDINE 20MG TABLET PO SCH (09:06)
[2021-12-02] MEDS: CLOPIDOGREL 75MG TABLET PO SCH (09:06)
[2021-12-02 10:21] LABS: BASOPHILS % 0.4 % (0.0-2.0); EOSINOPHILS % 0.9 % (0.0-5.0); HEMATOCRIT. 30.4 % (36.0-48.0); HEMOGLOBIN. 9.5 g/dL (12.0-16.0); LYMPHOCYTES % 11.9 % (20.0-50.0); MEAN CORPUSCULAR HEMOGLOBIN 24.4 pg (28.0-32.0); MEAN CORPUSCULAR VOLUME 78.4 fL (81.0-99.0); MONOCYTES % 5.7 % (2.0-8.0); NEUTROPHILS % 81.1 % (40.0-76.0); PLATELET 184 x1000/uL (130-400); RED BLOOD CELL COUNT 3.88 mill/uL (4.2-5.4); RED CELL DISTRIBUTION WIDTH 21.8 % (11.6-14.6)
[2021-12-02 12:00] VITALS: BP 136/78
[2021-12-02 16:00] VITALS: BP 132/77
[2021-12-02 20:00] VITALS: BP 141/87
[2021-12-02] MEDS ORDERED: DIPHENHYDRAMINE 50MG/ML VIAL IV PRN (21:30)
[2021-12-02] MEDS ORDERED: OXYCODONE HCL/ACETAMINOPHEN 5/325MG TABLET PO PRN ×2 (21:30)
[2021-12-02] MEDS: ATORVASTATIN CALCIUM 10MG TABLET PO SCH (21:40)
[2021-12-02] MEDS ORDERED: NALOXONE HCL 0.4MG/ML VIAL IV PRN (21:45)
[2021-12-03] VITALS: BP 154/64
[2021-12-03 04:30] VITALS: BP_SYST 109; BP_SYST 138; BP_DIAS 72; BP_DIAS 74
[2021-12-03] MEDS: HYDRALAZINE HCL 100MG TABLET PO SCH ×2 (06:28→13:40)
[2021-12-03 07:44] LABS: HEMATOCRIT. 31.2 % (36.0-48.0); HEMOGLOBIN. 9.4 g/dL (12.0-16.0); MEAN CORPUSCULAR HEMOGLOBIN 23.7 pg (28.0-32.0); MEAN CORPUSCULAR VOLUME 78.4 fL (81.0-99.0); MEAN PLATELET VOLUME 10.3 fl (7.4-10.4); PLATELET 184 x1000/uL (130-400); RED BLOOD CELL COUNT 3.98 mill/uL (4.2-5.4); RED CELL DISTRIBUTION WIDTH 21.9 % (11.6-14.6)
[2021-12-03 08:00] VITALS: BP 138/79
[2021-12-03] MEDS: PREDNISONE 10MG TABLET PO SCH (08:04)
[2021-12-03] MEDS: FAMOTIDINE 20MG TABLET PO SCH (08:05)
[2021-12-03] MEDS: AMLODIPINE 10MG TABLET PO SCH (08:05)
[2021-12-03] MEDS: CALCIUM CARBONATE/VITAMIN D3 500MG TABLET PO SCH (08:05)
[2021-12-03] MEDS: CARVEDILOL 12.5MG TABLET PO SCH (08:05)
[2021-12-03] MEDS: ASPIRIN 81MG EC TABLET PO SCH (08:05)
[2021-12-03] MEDS: POLYETHYLENE GLYCOL 3350 (17GM) 1 DOSE PACK PO SCH (08:06)
[2021-12-03] MEDS: CLOPIDOGREL 75MG TABLET PO SCH (08:09)
[2021-12-03] MEDS: IPRATROPIUM/ALBUTEROL 0.5-3(2.5)MG/3ML NEB HHN SCH ×2 (09:04)
[2021-12-03] MEDS ORDERED: FURO-151 MT (11:07)
[2021-12-03 14:04] LABS: PLATELET ESTIMATE NORMAL
== END 2021-12-03 16:00 | disposition home health service (06) | DRG 121 ==
LOC: ER 20:56 → MICUSO 23:49 → 8WST 11-17 01:54 → CVICU 11-22 18:31 → 3WST 11-28 13:53 → 7EST 12-01 12:29
PROVIDERS: ADMIT Internal Medicine Nephrology; ATTEND Internal Medicine Nephrology
PROC: 0BNF4ZZ Release Right Lower Lung Lobe, Percutaneous Endoscopic Approach (ICD-10-PCS; principal; 2021-11-22)
PROC: 0W9940Z Drainage of Right Pleural Cavity with Drainage Device, Percutaneous Endoscopic Approach (ICD-10-PCS; 2021-11-22)
PROC: 02HV33Z Insertion of Infusion Device into Superior Vena Cava, Percutaneous Approach (ICD-10-PCS; 2021-11-25)
PROC: B548ZZA Ultrasonography of Superior Vena Cava, Guidance (ICD-10-PCS; 2021-11-25)
PROC: 5A1D70Z Performance of Urinary Filtration, Intermittent, Less than 6 Hours Per Day (ICD-10-PCS; 2021-11-25)
PROC: 5A1D70Z Performance of Urinary Filtration, Intermittent, Less than 6 Hours Per Day (ICD-10-PCS; 2021-11-26)
PROC: 5A1D70Z Performance of Urinary Filtration, Intermittent, Less than 6 Hours Per Day (ICD-10-PCS; 2021-11-28)
PROC: 5A1D70Z Performance of Urinary Filtration, Intermittent, Less than 6 Hours Per Day (ICD-10-PCS; 2021-11-30)
DX: J96.21 Acute and chronic respiratory failure with hypoxia (principal); A41.51 Sepsis due to Escherichia coli [E. coli]; I50.23 Acute on chronic systolic (congestive) heart failure; I31.39 Other pericardial effusion (noninflammatory); N17.9 Acute kidney failure, unspecified; J18.9 Pneumonia, unspecified organism; H53.461 Homonymous bilateral field defects, right side; D63.8 Anemia in other chronic diseases classified elsewhere; D63.1 Anemia in chronic kidney disease; R41.4 Neurologic neglect syndrome; I13.0 Hypertensive heart and chronic kidney disease with heart failure and stage 1 through stage 4 chronic kidney disease, or unspecified chronic kidney disease; J91.8 Pleural effusion in other conditions classified elsewhere; E11.22 Type 2 diabetes mellitus with diabetic chronic kidney disease; N18.9 Chronic kidney disease, unspecified; E78.00 Pure hypercholesterolemia, unspecified; E61.1 Iron deficiency; N39.0 Urinary tract infection, site not specified; J44.0 Chronic obstructive pulmonary disease with (acute) lower respiratory infection; Z20.822 Contact with and (suspected) exposure to COVID-19; J44.9 Chronic obstructive pulmonary disease, unspecified; E78.5 Hyperlipidemia, unspecified; E11.21 Type 2 diabetes mellitus with diabetic nephropathy; E87.5 Hyperkalemia; M32.9 Systemic lupus erythematosus, unspecified; Z79.02 Long term (current) use of antithrombotics/antiplatelets; Z99.81 Dependence on supplemental oxygen; I69.951 Hemiplegia and hemiparesis following unspecified cerebrovascular disease affecting right dominant side; Z79.899 Other long term (current) drug therapy; Z79.51 Long term (current) use of inhaled steroids; Z79.82 Long term (current) use of aspirin; Z87.891 Personal history of nicotine dependence; Z99.3 Dependence on wheelchair; Z82.49 Family history of ischemic heart disease and other diseases of the circulatory system
CPT/HCPCS: 36415; 36556; 70551; 71045; 71250; 76770; 76937; 80048; 80053; 80061; 81003; 82040; 82607; 82728; 82746; 82962; 83036; 83540; 83550; 83615; 83880; 84145; 84155; 84484; 85025; 85379; 86038; 86225; 86705; 86709; 86803; 87077; 87186; 87340; 87426; 88108; 88312; 92523; 93005; 93970; 94640; 97116; 97162; 97164; 97166; 97168; 97530; 99291; C1752; C1893; J0696; J1100; J1170; J1200; J2270; J2370; J2543; J2704; J2920; J3010; J3490; J7030; J7060; J7512; J7626; P9041

== ENCOUNTER 2022-10-06 17:20 | Inpatient (IN) | payer OTHER ==
[~2022-10-06] VITALS: Ht 180.3 cm; Wt 77.5 kg
[~2022-10-06 17:20] MED LIST changes: -BUME2TAB7 PO; +FURO-151 MT; -LOSA100T32 PO
[2022-10-06] MEDS ORDERED: ACETAMINOPHEN 650MG SUPP RC PRN (19:00)
[2022-10-06] MEDS ORDERED: NITROGLYCERIN 0.4MG TABLET SL SL PRN (19:00)
[2022-10-06] MEDS ORDERED: DEXTROSE 50% WATER 50ML SYRINGE IV PRN (19:00)
[2022-10-06] MEDS ORDERED: ACETAMINOPHEN 325MG TABLET PO PRN (19:00)
[2022-10-06] MEDS ORDERED: MAGNESIUM/ALUMINUM HYDROXIDE/SIMETHICONE 30ML UDC PO PRN (19:00)
[2022-10-06] MEDS ORDERED: ONDANSETRON HCL 4MG/2ML INJ IV PRN (19:00)
[2022-10-06] MEDS ORDERED: CLONIDINE 0.1MG TABLET PO PRN (19:00)
[2022-10-06 19:30] VITALS: BP 128/81; PULSE 94; RESP 20; TEMP 99.3
[2022-10-06 20:00] VITALS: BP 128/81; PULSE 94; RESP 20; TEMP 99.3
[2022-10-06] MEDS ORDERED: THIAMINE HCL 100 MG in SODIUM CHLORIDE 0.9% 99 ML IV SCH (21:00)
[2022-10-06] MEDS: INSULIN LISPRO 100 UNITS/ML SUBCUT SCH (21:00)
[2022-10-06] MEDS: BUDESONIDE 0.5MG/2ML NEB HHN SCH (21:26)
[2022-10-06 21:28] VITALS: PULSE 94; RESP 22; O2SAT 94
[2022-10-06] MEDS: MEROPENEM 1,000 MG in SODIUM CHLORIDE 0.9% 100 ML IV SCH (21:32)
[2022-10-06] MEDS: ENOXAPARIN 30MG/0.3ML SYR SUBCUT SCH (21:34)
[2022-10-06] MEDS: BLOOD SUGAR DIAGNOSTIC STRIP TEST SCH (21:38)
[2022-10-06] MEDS ORDERED: THIAMINE HCL 500 MG in SODIUM CHLORIDE 0.9% 95 ML IV SCH (22:00)
[2022-10-06] MEDS: ACETAMINOPHEN 650MG/20.3ML UDC PO PRN (23:50)
[2022-10-07] VITALS (11 sets, daily range): BP systolic 98–170; BP diastolic 44–89; PULSE 68–109; RESP 17–22; TEMP 97.1–98.2; O2SAT 91–92
[2022-10-07] MEDS: GUAIFENESIN 200MG/10ML SUGAR FREE UDC PO PRN (00:42)
[2022-10-07] MEDS ORDERED: DOCUSATE SODIUM 100MG CAPSULE PO PRN (01:00)
[2022-10-07] MEDS: IPRATROPIUM/ALBUTEROL 0.5-3(2.5)MG/3ML NEB HHN PRN ×2 (02:20→09:25)
[2022-10-07] MEDS: BLOOD SUGAR DIAGNOSTIC STRIP TEST SCH ×4 (06:30→21:00)
[2022-10-07] MEDS ORDERED: INSULIN LISPRO 100 UNITS/ML SUBCUT SCH (07:00)
[2022-10-07 07:33] LABS: CHLORIDE 105 mEq/L (98-107); INDEX HEMOLYSI 1 (1-3); INDEX ICTERIC 1 (1-4); INDEX LIPEMIC 1 (1-3); POTASSIUM 4.6 mEq/L (3.5-5.1); SODIUM 141 mEq/L (136-145)
[2022-10-07 07:46] LABS: ALANINE AMINOTRANSFERASE 41 IU/L (13-61); ALBUMIN 2.6 g/dL (3.4-5.0); ASPARTATE AMINOTRANSFERASE 24 IU/L (15-37); BILIRUBIN TOTAL 0.8 mg/dL (0.1-1.0); CALCIUM 9.1 mg/dL (8.5-10.1); CARBON DIOXIDE 18 mEq/L (21-32); GLUCOSE 184 mg/dL (70-105); PROTEIN TOTAL 7.1 g/dL (6.0-8.3); UREA NITROGEN BLOOD 79 mg/dL (7-21)
[2022-10-07 07:53] LABS: CREATININE 6.7 mg/dL (0.6-1.3)
[2022-10-07 07:57] LABS: HEMATOCRIT. 36.2 % (36.0-48.0); HEMOGLOBIN. 10.9 g/dL (12.0-16.0); MEAN CORPUSCULAR HEMOGLOBIN 29.9 pg (28.0-32.0); MEAN CORPUSCULAR HGB CONC 30.2 g/dL (31.0-37.0); MEAN CORPUSCULAR VOLUME 99.2 fL (81.0-99.0); MEAN PLATELET VOLUME 10.4 fl (7.4-10.4); PLATELET 451 x1000/uL (130-400); RED BLOOD CELL COUNT 3.65 mill/uL (4.2-5.4); RED CELL DISTRIBUTION WIDTH 18.8 % (11.6-14.6); WHITE BLOOD COUNT 20.3 x1000/uL (4.5-11.0)
[2022-10-07 08:07] LABS: DIFFERENTIAL COMMENT 1
[2022-10-07] MEDS ORDERED: DOCUSATE SODIUM 100MG CAPSULE PO SCH (09:00)
[2022-10-07] MEDS ORDERED: MIDODRINE HCL 5MG TABLET PO SCH (09:00)
[2022-10-07] MEDS: ASPIRIN 81MG TABLET PO SCH (09:21)
[2022-10-07] MEDS: MIDODRINE HCL 5MG TABLET PO SCH ×3 (09:21→17:10)
[2022-10-07] MEDS: DOXYCYCLINE HYCLATE 100MG CAPSULE PO SCH ×2 (09:21→17:09)
[2022-10-07] MEDS: ZINC SULFATE 220 MG ( 50 ) CAPSULE PO SCH ×2 (09:22→17:09)
[2022-10-07] MEDS: PANTOPRAZOLE SODIUM 40 MG/VIAL IV SCH (09:22)
[2022-10-07] MEDS: CLOPIDOGREL 75MG TABLET PO SCH (09:22)
[2022-10-07] MEDS: FOLIC ACID/VITAMIN B COMP W-C TABLET PO SCH (09:22)
[2022-10-07] MEDS: BUDESONIDE 0.5MG/2ML NEB HHN SCH (09:25)
[2022-10-07] MEDS: INSULIN LISPRO 100 UNITS/ML SUBCUT SCH ×4 (09:51→21:00)
[2022-10-07] MEDS: IPRATROPIUM/ALBUTEROL 0.5-3(2.5)MG/3ML NEB HHN SCH ×2 (14:00→21:09)
[2022-10-07 16:11] LABS: HEPATITIS B SURFACE ANTIGEN NEGATIVE
[2022-10-07 16:15] LABS: ANISOCYTOSIS 2+; HYPOCHROMASIA 1+; PLATELET ESTIMATE INCREASED
[2022-10-07 16:39] LABS: HEPATITIS C VIR.AB 0.17 INDEXVAL (0.00-0.80)
[2022-10-07 16:40] LABS: HEPATITIS B CORE AB IGM NEGATIVE
[2022-10-07 16:41] LABS: HEPATITIS A AB IGM NEGATIVE (NEGATIVE)
[2022-10-07] MEDS: ACETAMINOPHEN 650MG/20.3ML UDC PO PRN (20:51)
[2022-10-07] MEDS: MEROPENEM 1,000 MG in SODIUM CHLORIDE 0.9% 100 ML IV SCH (22:26)
[2022-10-07] MEDS: ENOXAPARIN 30MG/0.3ML SYR SUBCUT SCH (22:37)
[2022-10-08 01:48] VITALS: PULSE 97; RESP 18
[2022-10-08] MEDS: IPRATROPIUM/ALBUTEROL 0.5-3(2.5)MG/3ML NEB HHN SCH ×4 (01:48→21:30)
[2022-10-08] MEDS: BLOOD SUGAR DIAGNOSTIC STRIP TEST SCH ×4 (06:30→20:48)
[2022-10-08 06:32] LABS: HEMATOCRIT. 31.3 % (36.0-48.0); HEMOGLOBIN. 9.7 g/dL (12.0-16.0); MEAN CORPUSCULAR HGB CONC 30.9 g/dL (31.0-37.0); MEAN PLATELET VOLUME 10.1 fl (7.4-10.4); PLATELET 442 x1000/uL (130-400); RED BLOOD CELL COUNT 3.23 mill/uL (4.2-5.4); RED CELL DISTRIBUTION WIDTH 18.6 % (11.6-14.6); WHITE BLOOD COUNT 24.6 x1000/uL (4.5-11.0)
[2022-10-08 06:39] LABS: DIFFERENTIAL COMMENT 1
[2022-10-08] MEDS: INSULIN LISPRO 100 UNITS/ML SUBCUT SCH ×4 (07:00→20:59)
[2022-10-08 07:15] LABS: ALANINE AMINOTRANSFERASE 32 IU/L (13-61); ALBUMIN 2.4 g/dL (3.4-5.0); ASPARTATE AMINOTRANSFERASE 21 IU/L (15-37); BILIRUBIN TOTAL 0.8 mg/dL (0.1-1.0); CALCIUM 8.3 mg/dL (8.5-10.1); CARBON DIOXIDE 19 mEq/L (21-32); CHLORIDE 101 mEq/L (98-107); GLUCOSE 140 mg/dL (70-105); INDEX HEMOLYSI 1 (1-3); INDEX ICTERIC 1 (1-4); INDEX LIPEMIC 1 (1-3); IRON 76 ug/dL (50-175); POTASSIUM 3.8 mEq/L (3.5-5.1); PROTEIN TOTAL 6.6 g/dL (6.0-8.3); SODIUM 138 mEq/L (136-145); TOTAL IRON BINDING CAPACITY 170 ug/dL (250-450); UREA NITROGEN BLOOD 39 mg/dL (7-21)
[2022-10-08 07:23] VITALS: PULSE 96; RESP 20
[2022-10-08] MEDS: BUDESONIDE 0.5MG/2ML NEB HHN SCH (07:23)
[2022-10-08 07:39] LABS: INDEX HEMOLYSI 1 (1-3); VITAMIN B12 SERUM >2000 pg/mL pg/mL (211-911)
[2022-10-08 08:00] VITALS: BP_SYST 107; BP_SYST 127; BP_DIAS 45; BP_DIAS 55; PULSE 69; PULSE 79; RESP 20; TEMP 96.4; TEMP 97.1
[2022-10-08 08:02] LABS: AMMONIA 29 uMol/L (<32); INDEX HEMOLYSI 1 (1-3)
[2022-10-08] MEDS: DOXYCYCLINE HYCLATE 100MG CAPSULE PO SCH ×2 (08:48→18:01)
[2022-10-08] MEDS: FOLIC ACID/VITAMIN B COMP W-C TABLET PO SCH (08:48)
[2022-10-08] MEDS: CLOPIDOGREL 75MG TABLET PO SCH (08:48)
[2022-10-08] MEDS: ASPIRIN 81MG TABLET PO SCH (08:48)
[2022-10-08] MEDS: ZINC SULFATE 220 MG ( 50 ) CAPSULE PO SCH ×2 (08:49→18:01)
[2022-10-08] MEDS: MIDODRINE HCL 5MG TABLET PO SCH ×3 (08:50→18:02)
[2022-10-08] MEDS ORDERED: ACETAMINOPHEN 500MG TABLET PO PRN (09:30)
[2022-10-08 11:13] LABS: FERRITIN 729 ng/mL (10-291)
[2022-10-08 13:27] LABS: ANISOCYTOSIS 2+; PLATELET ESTIMATE SLIGHTLY INCREASED
[2022-10-08] MEDS: PANTOPRAZOLE SODIUM 40 MG/VIAL IV SCH (15:27)
[2022-10-08] MEDS: ENOXAPARIN 30MG/0.3ML SYR SUBCUT SCH (19:14)
[2022-10-08 20:00] VITALS: BP 145/56; PULSE 88; RESP 18; TEMP 97.8
[2022-10-08] MEDS: MEROPENEM 1,000 MG in SODIUM CHLORIDE 0.9% 100 ML IV SCH (20:43)
[2022-10-08 21:30] VITALS: PULSE 88; RESP 20
[2022-10-08] MEDS: GUAIFENESIN 200MG/10ML SUGAR FREE UDC PO PRN (22:42)
[2022-10-09] VITALS (8 sets, daily range): BP systolic 119–164; BP diastolic 38–105; PULSE 67–100; RESP 13–21; TEMP 96.8–97.9; O2SAT 98
[2022-10-09] MEDS: IPRATROPIUM/ALBUTEROL 0.5-3(2.5)MG/3ML NEB HHN SCH ×4 (02:00→21:44)
[2022-10-09 06:03] LABS: POTASSIUM 3.5 mEq/L (3.5-5.1)
[2022-10-09 06:07] LABS: CALCIUM 8.4 mg/dL (8.5-10.1)
[2022-10-09 06:30] LABS: HEMATOCRIT. 32.5 % (36.0-48.0); HEMOGLOBIN. 9.9 g/dL (12.0-16.0); MEAN CORPUSCULAR HEMOGLOBIN 29.8 pg (28.0-32.0); MEAN CORPUSCULAR HGB CONC 30.4 g/dL (31.0-37.0); MEAN CORPUSCULAR VOLUME 98.1 fL (81.0-99.0); MEAN PLATELET VOLUME 9.8 fl (7.4-10.4); PLATELET 473 x1000/uL (130-400); RED BLOOD CELL COUNT 3.32 mill/uL (4.2-5.4); RED CELL DISTRIBUTION WIDTH 19.6 % (11.6-14.6)
[2022-10-09] MEDS: BLOOD SUGAR DIAGNOSTIC STRIP TEST SCH ×4 (06:45→21:25)
[2022-10-09] MEDS: INSULIN LISPRO 100 UNITS/ML SUBCUT SCH ×4 (06:45→21:30)
[2022-10-09 06:54] LABS: DIFFERENTIAL COMMENT 1
[2022-10-09 07:10] LABS: CREATININE 6.6 mg/dL (0.6-1.3)
[2022-10-09] MEDS: MIDODRINE HCL 5MG TABLET PO SCH ×3 (08:21→16:34)
[2022-10-09] MEDS: CLOPIDOGREL 75MG TABLET PO SCH (08:21)
[2022-10-09] MEDS: ASPIRIN 81MG TABLET PO SCH (08:21)
[2022-10-09] MEDS: FOLIC ACID/VITAMIN B COMP W-C TABLET PO SCH (08:21)
[2022-10-09] MEDS: ZINC SULFATE 220 MG ( 50 ) CAPSULE PO SCH ×2 (08:21→16:33)
[2022-10-09] MEDS: DOXYCYCLINE HYCLATE 100MG CAPSULE PO SCH ×2 (08:22→16:34)
[2022-10-09] MEDS: FAMOTIDINE 20MG TABLET PO SCH (09:00)
[2022-10-09] MEDS: BUDESONIDE 0.5MG/2ML NEB HHN SCH ×2 (13:21→21:44)
[2022-10-09 14:33] LABS: ANISOCYTOSIS 1+; NUCLEATED RED BLOOD CELLS 1 /100 WBC; PLATELET ESTIMATE INCREASED
[2022-10-09] MEDS: ENOXAPARIN 30MG/0.3ML SYR SUBCUT SCH (18:04)
[2022-10-09] MEDS: MEROPENEM 1,000 MG in SODIUM CHLORIDE 0.9% 100 ML IV SCH (20:45)
[2022-10-10 02:04] VITALS: PULSE 76; RESP 20
[2022-10-10] MEDS: IPRATROPIUM/ALBUTEROL 0.5-3(2.5)MG/3ML NEB HHN SCH ×4 (02:04→19:47)
[2022-10-10] MEDS: BLOOD SUGAR DIAGNOSTIC STRIP TEST SCH ×4 (06:54→21:01)
[2022-10-10] MEDS: INSULIN LISPRO 100 UNITS/ML SUBCUT SCH ×4 (06:54→21:00)
[2022-10-10] MEDS: BUDESONIDE 0.5MG/2ML NEB HHN SCH ×2 (07:35→19:43)
[2022-10-10 07:39] VITALS: PULSE 72; RESP 16; O2SAT 96
[2022-10-10 08:00] VITALS: BP 145/56; PULSE 93; RESP 17; TEMP 97
[2022-10-10] MEDS: ASPIRIN 81MG TABLET PO SCH (09:02)
[2022-10-10] MEDS: MIDODRINE HCL 5MG TABLET PO SCH ×3 (09:02→18:12)
[2022-10-10] MEDS: FOLIC ACID/VITAMIN B COMP W-C TABLET PO SCH (09:02)
[2022-10-10] MEDS: ZINC SULFATE 220 MG ( 50 ) CAPSULE PO SCH ×2 (09:03→18:12)
[2022-10-10] MEDS: DOXYCYCLINE HYCLATE 100MG CAPSULE PO SCH ×2 (09:03→18:16)
[2022-10-10] MEDS: CLOPIDOGREL 75MG TABLET PO SCH (09:03)
[2022-10-10 09:46] LABS: HEMATOCRIT. 33.7 % (36.0-48.0); HEMOGLOBIN. 10.2 g/dL (12.0-16.0); MEAN CORPUSCULAR HEMOGLOBIN 30.4 pg (28.0-32.0); MEAN CORPUSCULAR HGB CONC 30.2 g/dL (31.0-37.0); MEAN CORPUSCULAR VOLUME 100.7 fL (81.0-99.0); MEAN PLATELET VOLUME 10.3 fl (7.4-10.4); PLATELET 468 x1000/uL (130-400); RED BLOOD CELL COUNT 3.34 mill/uL (4.2-5.4); RED CELL DISTRIBUTION WIDTH 20.1 % (11.6-14.6); WHITE BLOOD COUNT 19.4 x1000/uL (4.5-11.0)
[2022-10-10 09:50] LABS: DIFFERENTIAL COMMENT 1
[2022-10-10 10:21] LABS: CHLORIDE 100 mEq/L (98-107); INDEX HEMOLYSI 1 (1-3); INDEX ICTERIC 1 (1-4); INDEX LIPEMIC 1 (1-3); SODIUM 138 mEq/L (136-145)
[2022-10-10 10:41] LABS: ALANINE AMINOTRANSFERASE 25 IU/L (13-61); ALBUMIN 2.7 g/dL (3.4-5.0); ASPARTATE AMINOTRANSFERASE 17 IU/L (15-37); BILIRUBIN TOTAL 0.9 mg/dL (0.1-1.0); CALCIUM 8.7 mg/dL (8.5-10.1); CARBON DIOXIDE 17 mEq/L (21-32); GLUCOSE 121 mg/dL (70-105); PROTEIN TOTAL 6.7 g/dL (6.0-8.3); T4 FREE 1.03 ng/dL (0.76-1.46); UREA NITROGEN BLOOD 71 mg/dL (7-21)
[2022-10-10 10:54] LABS: CREATININE 7.7 mg/dL (0.6-1.3)
[2022-10-10 13:59] VITALS: PULSE 86; RESP 20; O2SAT 88
[2022-10-10 15:54] LABS: ANISOCYTOSIS 2+; NUCLEATED RED BLOOD CELLS 1 /100 WBC; PLATELET ESTIMATE INCREASED
[2022-10-10 15:55] LABS: HYPOCHROMASIA 1+
[2022-10-10] MEDS: ENOXAPARIN 30MG/0.3ML SYR SUBCUT SCH (18:17)
[2022-10-10] MEDS ORDERED: LORAZEPAM 2MG/ML CPJ IV NR (19:30)
[2022-10-10 19:47] VITALS: PULSE 84; RESP 18; O2SAT 89
[2022-10-10 20:00] VITALS: BP 127/68; PULSE 79; RESP 19; TEMP 97.6
[2022-10-10] MEDS: MEROPENEM 1,000 MG in SODIUM CHLORIDE 0.9% 100 ML IV SCH (21:02)
[2022-10-11] MEDS: BLOOD SUGAR DIAGNOSTIC STRIP TEST SCH (06:26)
[2022-10-11] MEDS: INSULIN LISPRO 100 UNITS/ML SUBCUT SCH (06:36)
[2022-10-11 08:00] VITALS: BP 155/80; PULSE 98; RESP 22; TEMP 96.9
[2022-10-11] MEDS: FAMOTIDINE 20MG TABLET PO SCH (10:56)
[2022-10-11] MEDS: CLOPIDOGREL 75MG TABLET PO SCH (10:56)
[2022-10-11] MEDS: ASPIRIN 81MG TABLET PO SCH (10:56)
[2022-10-11] MEDS: DOXYCYCLINE HYCLATE 100MG CAPSULE PO SCH (10:56)
[2022-10-11] MEDS: FOLIC ACID/VITAMIN B COMP W-C TABLET PO SCH (10:56)
[2022-10-11 10:57] VITALS: TEMP 97.5
[2022-10-11] MEDS: ZINC SULFATE 220 MG ( 50 ) CAPSULE PO SCH (10:57)
== END 2022-10-11 12:12 | disposition short-term general hospital (02) | DRG 52 ==
PROVIDERS: ADMIT Physical Medicine & Rehabilitation Spinal Cord Injury Medicine; ATTEND Internal Medicine
PROC: 5A1D70Z Performance of Urinary Filtration, Intermittent, Less than 6 Hours Per Day (ICD-10-PCS; principal; 2022-10-07)
PROC: 5A1D70Z Performance of Urinary Filtration, Intermittent, Less than 6 Hours Per Day (ICD-10-PCS; 2022-10-11)
DX: G93.41 Metabolic encephalopathy (principal); J96.01 Acute respiratory failure with hypoxia; R65.21 Severe sepsis with septic shock; I46.9 Cardiac arrest, cause unspecified; A41.9 Sepsis, unspecified organism; I50.23 Acute on chronic systolic (congestive) heart failure; E11.52 Type 2 diabetes mellitus with diabetic peripheral angiopathy with gangrene; D63.8 Anemia in other chronic diseases classified elsewhere; L89.159 Pressure ulcer of sacral region, unspecified stage; E44.0 Moderate protein-calorie malnutrition; N17.9 Acute kidney failure, unspecified; J15.0 Pneumonia due to Klebsiella pneumoniae; E11.649 Type 2 diabetes mellitus with hypoglycemia without coma; N18.6 End stage renal disease; J44.0 Chronic obstructive pulmonary disease with (acute) lower respiratory infection; R26.9 Unspecified abnormalities of gait and mobility; G82.50 Quadriplegia, unspecified; E11.22 Type 2 diabetes mellitus with diabetic chronic kidney disease; I13.2 Hypertensive heart and chronic kidney disease with heart failure and with stage 5 chronic kidney disease, or end stage renal disease; N39.0 Urinary tract infection, site not specified; D75.839 Thrombocytosis, unspecified; R94.6 Abnormal results of thyroid function studies; R74.01 Elevation of levels of liver transaminase levels; R00.1 Bradycardia, unspecified; E03.8 Other specified hypothyroidism; E11.65 Type 2 diabetes mellitus with hyperglycemia; E78.00 Pure hypercholesterolemia, unspecified; E87.1 Hypo-osmolality and hyponatremia; N25.81 Secondary hyperparathyroidism of renal origin; R13.10 Dysphagia, unspecified; Z99.2 Dependence on renal dialysis; Z99.81 Dependence on supplemental oxygen; Z79.4 Long term (current) use of insulin; Z82.3 Family history of stroke; Z82.49 Family history of ischemic heart disease and other diseases of the circulatory system; Z86.73 Personal history of transient ischemic attack (TIA), and cerebral infarction without residual deficits; Z91.81 History of falling; Z79.899 Other long term (current) drug therapy; Z79.82 Long term (current) use of aspirin; R53.81 Other malaise
CPT/HCPCS: 36415; 70551; 71045; 80048; 80053; 82140; 82306; 82607; 82728; 82746; 82962; 83036; 83540; 83550; 84134; 84145; 84439; 84443; 84480; 85025; 86376; 86705; 86709; 86803; 87340; 90935; 92523; 92610; 93970; 94640; 97110; 97163; 97167; 97530; 97535; A6261; C9113; J1650; J1815; J2185; J3411; J7050; J7626; A5200

== ENCOUNTER 2022-10-11 12:41 | Inpatient (IN) | payer OTHER ==
[~2022-10-11] VITALS: Ht 165.1 cm; Wt 70.8 kg
[2022-10-11] VITALS (14 sets, daily range): BP systolic 111–149; BP diastolic 57–89; PULSE 83–94; RESP 17–26; TEMP 97.3–98.5; O2SAT 98
[2022-10-11] MEDS ORDERED: IPRATROPIUM/ALBUTEROL 0.5-3(2.5)MG/3ML NEB HHN PRN (15:45)
[2022-10-11] MEDS ORDERED: MAGNESIUM/ALUMINUM HYDROXIDE/SIMETHICONE 30ML UDC PO PRN (15:45)
[2022-10-11] MEDS ORDERED: HYDROCODONE/ACETAMINOPHEN 5/325MG TABLET PO PRN (15:45)
[2022-10-11] MEDS ORDERED: CLONIDINE 0.1MG TABLET PO PRN (15:45)
[2022-10-11] MEDS ORDERED: ONDANSETRON HCL 4MG/2ML INJ IV PRN (15:45)
[2022-10-11] MEDS ORDERED: ENOXAPARIN 40MG/0.4ML SYR SUBCUT SCH (15:45)
[2022-10-11] MEDS ORDERED: DOCUSATE SODIUM 100MG CAPSULE PO PRN (15:45)
[2022-10-11] MEDS ORDERED: ACETAMINOPHEN 325MG TABLET PO PRN ×2 (15:45)
[2022-10-11] MEDS ORDERED: NALOXONE HCL 0.4MG/ML VIAL IV PRN (16:15)
[2022-10-11] MEDS ORDERED: MEROPENEM 500 MG in SODIUM CHLORIDE 0.9% 50 ML IV NR ×2 (17:00→20:00)
[2022-10-11] MEDS: DOXYCYCLINE 100 MG in DEXT 5% WATER 100 ML IV SCH (18:04)
[2022-10-11] MEDS ORDERED: DEXTROSE 50% WATER 50ML SYRINGE IV PRN (18:15)
[2022-10-11] MEDS: INSULIN LISPRO 100 UNITS/ML SUBCUT SCH (21:00)
[2022-10-11] MEDS: IPRATROPIUM/ALBUTEROL 0.5-3(2.5)MG/3ML NEB HHN SCH (21:36)
[2022-10-11] MEDS: BUDESONIDE 0.5MG/2ML NEB HHN SCH (21:36)
[2022-10-11] MEDS: PANTOPRAZOLE SODIUM 40 MG/VIAL IV SCH (21:50)
[2022-10-11] MEDS: BLOOD SUGAR DIAGNOSTIC STRIP TEST SCH (21:51)
[2022-10-11] MEDS ORDERED: MEROPENEM 500 MG in SODIUM CHLORIDE 0.9% 50 ML IV SCH (22:00)
[2022-10-11 22:18] LABS: BG BASE EXCESS -4.1 mmol/L (-2.0-2.0); BG CARBOXYHEMOGLOBIN 1.2 % (0.5-1.5); BG DEOXYHEMOGLOBIN 3.2 % (0.0-5.0); BG FRACTION INSPIRED OXYGEN 36; BG HCO3 ACT 18.4 mmol/L (22.0-26.0); BG OXYGEN SATURATION 96.8 % (92.0-98.5); BG OXYHEMOGLOBIN 95.6 % (94.0-97.0); BG PCO2 26.1 mmHg (35.0-45.0); BG PH 7.465 (7.350-7.450); BG PO2 93.7 mmHg (75.0-100.0); BG SAMPLE SITE RIGHT RADIAL; BG TOTAL HEMOGLOBIN 11.6 g/dL (12.0-18.0); BG VENT MODE NASAL CANNULA
[2022-10-11] MEDS ORDERED: LORAZEPAM 2MG/ML CPJ IV NR (22:30)
[2022-10-12] VITALS (20 sets, daily range): BP systolic 69–191; BP diastolic 33–137; PULSE 86–96; RESP 10–27; TEMP 97.3–98.5; O2SAT 90–98
[2022-10-12] MEDS: IPRATROPIUM/ALBUTEROL 0.5-3(2.5)MG/3ML NEB HHN SCH ×4 (01:00→19:58)
[2022-10-12] MEDS: DOXYCYCLINE 100 MG in DEXT 5% WATER 100 ML IV SCH ×2 (05:06→17:54)
[2022-10-12 07:24] LABS: HEMATOCRIT. 37.4 % (36.0-48.0); HEMOGLOBIN. 11.1 g/dL (12.0-16.0); MEAN CORPUSCULAR HEMOGLOBIN 30.6 pg (28.0-32.0); MEAN CORPUSCULAR HGB CONC 29.8 g/dL (31.0-37.0); MEAN CORPUSCULAR VOLUME 102.6 fL (81.0-99.0); MEAN PLATELET VOLUME 10.1 fl (7.4-10.4); PLATELET 389 x1000/uL (130-400); RED BLOOD CELL COUNT 3.65 mill/uL (4.2-5.4); RED CELL DISTRIBUTION WIDTH 20.8 % (11.6-14.6); WHITE BLOOD COUNT 15.3 x1000/uL (4.5-11.0)
[2022-10-12 07:30] LABS: DIFFERENTIAL COMMENT 1
[2022-10-12] MEDS: BLOOD SUGAR DIAGNOSTIC STRIP TEST SCH ×4 (07:49→20:44)
[2022-10-12] MEDS: INSULIN LISPRO 100 UNITS/ML SUBCUT SCH ×4 (07:58→20:44)
[2022-10-12 08:09] LABS: CHLORIDE 105 mEq/L (98-107); INDEX HEMOLYSI 2 (1-3); INDEX ICTERIC 1 (1-4); INDEX LIPEMIC 1 (1-3); POTASSIUM 4.2 mEq/L (3.5-5.1); SODIUM 139 mEq/L (136-145)
[2022-10-12 08:22] LABS: ALANINE AMINOTRANSFERASE 18 IU/L (13-61); ALBUMIN 2.8 g/dL (3.4-5.0); ASPARTATE AMINOTRANSFERASE 20 IU/L (15-37); BILIRUBIN TOTAL 0.9 mg/dL (0.1-1.0); CALCIUM 8.5 mg/dL (8.5-10.1); CARBON DIOXIDE 18 mEq/L (21-32); CHOLESTEROL 134 mg/dL (<200); GLUCOSE 141 mg/dL (70-105); HDL CHOLESTEROL 30 mg/dL (40-59); LDL CHOLESTEROL 88 mg/dL (5-100); PROTEIN TOTAL 6.9 g/dL (6.0-8.3); TRIGLYCERIDE 116 mg/dL (0-150); UREA NITROGEN BLOOD 53 mg/dL (7-21)
[2022-10-12 08:28] LABS: CREATININE 6.9 mg/dL (0.6-1.3)
[2022-10-12] MEDS: ASPIRIN 81MG EC TABLET PO SCH (09:33)
[2022-10-12] MEDS: ENOXAPARIN 30MG/0.3ML SYR SUBCUT SCH (09:33)
[2022-10-12] MEDS: MENTHOL/LANOLIN/CALAMINE/ZN OX OINT 71GM TOP SCH ×2 (09:34→16:44)
[2022-10-12] MEDS: BUDESONIDE 0.5MG/2ML NEB HHN SCH ×2 (09:50→19:58)
[2022-10-12 14:32] LABS: PLATELET ESTIMATE NORMAL
[2022-10-12 14:33] LABS: ANISOCYTOSIS 2+
[2022-10-12] MEDS: PANTOPRAZOLE SODIUM 40 MG/VIAL IV SCH (20:43)
[2022-10-12] MEDS: MEROPENEM 500MG in NORMAL SALINE 50ML IV SCH (20:43)
[2022-10-12] MEDS ORDERED: LORAZEPAM 2MG/ML CPJ IV NR (21:15)
[2022-10-12] MEDS ORDERED: DIPHENHYDRAMINE 50MG/ML VIAL IV NR (21:15)
[2022-10-13] VITALS (13 sets, daily range): BP systolic 86–142; BP diastolic 43–90; PULSE 74–95; RESP 9–38; TEMP 97.3–98.7; O2SAT 98
[2022-10-13] MEDS: IPRATROPIUM/ALBUTEROL 0.5-3(2.5)MG/3ML NEB HHN SCH ×4 (03:30→20:09)
[2022-10-13] MEDS: DOXYCYCLINE 100 MG in DEXT 5% WATER 100 ML IV SCH ×2 (05:05→17:38)
[2022-10-13 06:35] LABS: HEMATOCRIT. 40.5 % (36.0-48.0); HEMOGLOBIN. 12.5 g/dL (12.0-16.0); MEAN CORPUSCULAR HEMOGLOBIN 31.3 pg (28.0-32.0); MEAN CORPUSCULAR HGB CONC 30.9 g/dL (31.0-37.0); MEAN CORPUSCULAR VOLUME 101.2 fL (81.0-99.0); MEAN PLATELET VOLUME 10.1 fl (7.4-10.4); PLATELET 420 x1000/uL (130-400); RED CELL DISTRIBUTION WIDTH 23.1 % (11.6-14.6); WHITE BLOOD COUNT 13.2 x1000/uL (4.5-11.0)
[2022-10-13 06:46] LABS: CHLORIDE 102 mEq/L (98-107); INDEX HEMOLYSI 2 (1-3); INDEX ICTERIC 1 (1-4); INDEX LIPEMIC 1 (1-3); POTASSIUM 3.9 mEq/L (3.5-5.1); SODIUM 136 mEq/L (136-145)
[2022-10-13 06:47] LABS: DIFFERENTIAL COMMENT 1
[2022-10-13 06:58] LABS: ALANINE AMINOTRANSFERASE 19 IU/L (13-61); ALBUMIN 3.1 g/dL (3.4-5.0); ASPARTATE AMINOTRANSFERASE 25 IU/L (15-37); BILIRUBIN TOTAL 1.1 mg/dL (0.1-1.0); CALCIUM 9.5 mg/dL (8.5-10.1); CARBON DIOXIDE 18 mEq/L (21-32); GLUCOSE 116 mg/dL (70-105); PROTEIN TOTAL 7.7 g/dL (6.0-8.3); UREA NITROGEN BLOOD 37 mg/dL (7-21)
[2022-10-13 07:10] LABS: CREATININE 5.5 mg/dL (0.6-1.3)
[2022-10-13] MEDS: BLOOD SUGAR DIAGNOSTIC STRIP TEST SCH ×4 (07:30→20:42)
[2022-10-13] MEDS: INSULIN LISPRO 100 UNITS/ML SUBCUT SCH ×4 (08:00→20:42)
[2022-10-13 08:22] LABS: PREALBUMIN 12.7 mg/dL (20.0-40.0)
[2022-10-13] MEDS: FAMOTIDINE 20MG/2ML VIAL IV SCH (08:42)
[2022-10-13] MEDS: ENOXAPARIN 30MG/0.3ML SYR SUBCUT SCH (08:43)
[2022-10-13] MEDS: ASPIRIN 81MG EC TABLET PO SCH (08:43)
[2022-10-13] MEDS: MENTHOL/LANOLIN/CALAMINE/ZN OX OINT 71GM TOP SCH ×2 (08:43→17:35)
[2022-10-13] MEDS: BUDESONIDE 0.5MG/2ML NEB HHN SCH ×2 (08:58→20:08)
[2022-10-13] MEDS ORDERED: DIPHENHYDRAMINE 50MG/ML VIAL IV SCH (10:40)
[2022-10-13] MEDS ORDERED: LORAZEPAM 2MG/ML CPJ IV SCH (10:40)
[2022-10-13] MEDS: CLOPIDOGREL 75MG TABLET PO SCH (12:30)
[2022-10-13] MEDS: FUROSEMIDE 40MG TABLET PO SCH (12:33)
[2022-10-13 17:09] LABS: ANISOCYTOSIS 3+; HYPOCHROMASIA 1+; PLATELET ESTIMATE INCREASED
[2022-10-13] MEDS: MEROPENEM 500MG in NORMAL SALINE 50ML IV SCH (20:29)
[2022-10-13] MEDS: ATORVASTATIN CALCIUM 10MG TABLET PO SCH (20:42)
[2022-10-14] VITALS (19 sets, daily range): BP systolic 119–158; BP diastolic 45–79; PULSE 71–92; RESP 14–22; TEMP 96.7–98.5; O2SAT 92–96
[2022-10-14] MEDS: IPRATROPIUM/ALBUTEROL 0.5-3(2.5)MG/3ML NEB HHN SCH ×4 (01:42→20:45)
[2022-10-14] MEDS: LEVETIRACETAM 500MG PREMIX 100 ML IV SCH ×3 (03:09→20:47)
[2022-10-14] MEDS: INSULIN LISPRO 100 UNITS/ML SUBCUT SCH ×4 (05:41→20:48)
[2022-10-14] MEDS: DOXYCYCLINE 100 MG in DEXT 5% WATER 100 ML IV SCH ×2 (05:41→18:29)
[2022-10-14] MEDS: BLOOD SUGAR DIAGNOSTIC STRIP TEST SCH ×4 (05:41→20:48)
[2022-10-14] MEDS: BUDESONIDE 0.5MG/2ML NEB HHN SCH (08:10)
[2022-10-14] MEDS: CLOPIDOGREL 75MG TABLET PO SCH (09:06)
[2022-10-14] MEDS: ASPIRIN 81MG EC TABLET PO SCH (09:06)
[2022-10-14] MEDS: FUROSEMIDE 40MG TABLET PO SCH (09:06)
[2022-10-14] MEDS: ENOXAPARIN 30MG/0.3ML SYR SUBCUT SCH (09:07)
[2022-10-14] MEDS: MENTHOL/LANOLIN/CALAMINE/ZN OX OINT 71GM TOP SCH ×2 (09:07→17:00)
[2022-10-14 13:40] LABS: CHLORIDE 101 mEq/L (98-107); INDEX HEMOLYSI 5 (1-3); INDEX ICTERIC 1 (1-4); INDEX LIPEMIC 1 (1-3); SODIUM 133 mEq/L (136-145)
[2022-10-14 13:48] LABS: ALANINE AMINOTRANSFERASE 22 IU/L (13-61); ALBUMIN 2.8 g/dL (3.4-5.0); ASPARTATE AMINOTRANSFERASE 68 IU/L (15-37); CALCIUM 8.6 mg/dL (8.5-10.1); GLUCOSE 162 mg/dL (70-105); PROTEIN TOTAL 7.1 g/dL (6.0-8.3); UREA NITROGEN BLOOD 55 mg/dL (7-21)
[2022-10-14 13:58] LABS: CARBON DIOXIDE 14 mEq/L (21-32)
[2022-10-14 14:08] LABS: CREATININE 6.9 mg/dL (0.6-1.3); POTASSIUM 7.3 mEq/L (3.5-5.1)
[2022-10-14 15:31] LABS: BASOPHILS % 0.6 % (0.0-2.0); EOSINOPHILS % 0.1 % (0.0-5.0); HEMATOCRIT. 41.6 % (36.0-48.0); HEMOGLOBIN. 12.2 g/dL (12.0-16.0); LYMPHOCYTES % 9.2 % (20.0-50.0); MEAN CORPUSCULAR HEMOGLOBIN 30.1 pg (28.0-32.0); MEAN CORPUSCULAR HGB CONC 29.5 g/dL (31.0-37.0); MEAN CORPUSCULAR VOLUME 102.1 fL (81.0-99.0); MEAN PLATELET VOLUME 10.2 fl (7.4-10.4); MONOCYTES % 6.8 % (2.0-8.0); NEUTROPHILS % 83.3 % (40.0-76.0); PLATELET 344 x1000/uL (130-400); RED BLOOD CELL COUNT 4.07 mill/uL (4.2-5.4); WHITE BLOOD COUNT 12.5 x1000/uL (4.5-11.0)
[2022-10-14 15:32] LABS: ADD RBC MORPHOLOGY YES; DIFFERENTIAL COMMENT 1
[2022-10-14 15:46] LABS: POTASSIUM 4.6 mEq/L (3.5-5.1)
[2022-10-14 15:48] LABS: CALCIUM 8.6 mg/dL (8.5-10.1)
[2022-10-14 15:56] LABS: CREATININE 7.2 mg/dL (0.6-1.3)
[2022-10-14 18:01] LABS: PLATELET ESTIMATE NORMAL
[2022-10-14 18:02] LABS: ANISOCYTOSIS 2+
[2022-10-14] MEDS: MEROPENEM 500MG in NORMAL SALINE 50ML IV SCH (20:06)
[2022-10-14] MEDS: ATORVASTATIN CALCIUM 10MG TABLET PO SCH (20:47)
[2022-10-15] VITALS (8 sets, daily range): BP systolic 107–155; BP diastolic 45–69; PULSE 68–95; RESP 17–20; TEMP 96.1–97.8
[2022-10-15] MEDS: DOXYCYCLINE 100 MG in DEXT 5% WATER 100 ML IV SCH ×2 (05:10→17:36)
[2022-10-15] MEDS: INSULIN LISPRO 100 UNITS/ML SUBCUT SCH ×4 (06:28→20:04)
[2022-10-15] MEDS: BLOOD SUGAR DIAGNOSTIC STRIP TEST SCH ×4 (06:28→20:04)
[2022-10-15] MEDS: IPRATROPIUM/ALBUTEROL 0.5-3(2.5)MG/3ML NEB HHN SCH ×2 (07:31→14:21)
[2022-10-15] MEDS: FAMOTIDINE 20MG/2ML VIAL IV SCH (09:07)
[2022-10-15] MEDS: ASPIRIN 81MG EC TABLET PO SCH (10:10)
[2022-10-15] MEDS: MENTHOL/LANOLIN/CALAMINE/ZN OX OINT 71GM TOP SCH ×2 (10:10→17:51)
[2022-10-15] MEDS: CLOPIDOGREL 75MG TABLET PO SCH (10:10)
[2022-10-15] MEDS: ENOXAPARIN 30MG/0.3ML SYR SUBCUT SCH (10:10)
[2022-10-15] MEDS: FUROSEMIDE 40MG TABLET PO SCH (10:10)
[2022-10-15 10:14] LABS: HEMATOCRIT. 39.9 % (36.0-48.0); HEMOGLOBIN. 11.8 g/dL (12.0-16.0); MEAN CORPUSCULAR HEMOGLOBIN 30.2 pg (28.0-32.0); MEAN CORPUSCULAR HGB CONC 29.7 g/dL (31.0-37.0); MEAN CORPUSCULAR VOLUME 101.7 fL (81.0-99.0); PLATELET 317 x1000/uL (130-400); RED BLOOD CELL COUNT 3.92 mill/uL (4.2-5.4); RED CELL DISTRIBUTION WIDTH 22.5 % (11.6-14.6); WHITE BLOOD COUNT 12.1 x1000/uL (4.5-11.0)
[2022-10-15 10:15] LABS: DIFFERENTIAL COMMENT 1
[2022-10-15 10:34] LABS: CHLORIDE 104 mEq/L (98-107); INDEX HEMOLYSI 1 (1-3); INDEX ICTERIC 1 (1-4); INDEX LIPEMIC 1 (1-3); POTASSIUM 3.4 mEq/L (3.5-5.1); SODIUM 139 mEq/L (136-145)
[2022-10-15 10:40] LABS: ALANINE AMINOTRANSFERASE 15 IU/L (13-61); ALBUMIN 2.7 g/dL (3.4-5.0); ASPARTATE AMINOTRANSFERASE 17 IU/L (15-37); BILIRUBIN TOTAL 0.9 mg/dL (0.1-1.0); CALCIUM 8.4 mg/dL (8.5-10.1); CARBON DIOXIDE 20 mEq/L (21-32); GLUCOSE 143 mg/dL (70-105); PROTEIN TOTAL 6.6 g/dL (6.0-8.3); UREA NITROGEN BLOOD 42 mg/dL (7-21)
[2022-10-15 10:54] LABS: CREATININE 6.3 mg/dL (0.6-1.3)
[2022-10-15 11:47] LABS: ANISOCYTOSIS 2+; PLATELET ESTIMATE NORMAL
[2022-10-15] MEDS: MEROPENEM 500MG in NORMAL SALINE 50ML IV SCH (20:08)
[2022-10-15] MEDS: ATORVASTATIN CALCIUM 10MG TABLET PO SCH (20:08)
[2022-10-16] VITALS (9 sets, daily range): BP systolic 108–132; BP diastolic 56–74; PULSE 72–91; RESP 17–22; TEMP 92.6–98.5; O2SAT 92–93
[2022-10-16] MEDS: DOXYCYCLINE 100 MG in DEXT 5% WATER 100 ML IV SCH (05:01)
[2022-10-16 06:17] LABS: BASOPHILS % 0.7 % (0.0-2.0); HEMATOCRIT. 39.4 % (36.0-48.0); HEMOGLOBIN. 12.2 g/dL (12.0-16.0); LYMPHOCYTES % 7.2 % (20.0-50.0); MEAN CORPUSCULAR VOLUME 99.8 fL (81.0-99.0); MEAN PLATELET VOLUME 9.8 fl (7.4-10.4); MONOCYTES % 6.4 % (2.0-8.0); NEUTROPHILS % 85.7 % (40.0-76.0); PLATELET 309 x1000/uL (130-400); RED BLOOD CELL COUNT 3.95 mill/uL (4.2-5.4); RED CELL DISTRIBUTION WIDTH 22.3 % (11.6-14.6); WHITE BLOOD COUNT 10.3 x1000/uL (4.5-11.0)
[2022-10-16] MEDS: INSULIN LISPRO 100 UNITS/ML SUBCUT SCH ×3 (06:17→21:04)
[2022-10-16] MEDS: BLOOD SUGAR DIAGNOSTIC STRIP TEST SCH ×3 (06:17→20:44)
[2022-10-16 06:29] LABS: DIFFERENTIAL COMMENT 1
[2022-10-16 07:00] LABS: CHLORIDE 106 mEq/L (98-107); INDEX HEMOLYSI 3 (1-3); INDEX ICTERIC 1 (1-4); INDEX LIPEMIC 1 (1-3); SODIUM 137 mEq/L (136-145)
[2022-10-16 07:11] LABS: ALANINE AMINOTRANSFERASE 17 IU/L (13-61); ALBUMIN 2.8 g/dL (3.4-5.0); ASPARTATE AMINOTRANSFERASE 25 IU/L (15-37); BILIRUBIN TOTAL 1.1 mg/dL (0.1-1.0); CALCIUM 8.2 mg/dL (8.5-10.1); CARBON DIOXIDE 18 mEq/L (21-32); GLUCOSE 116 mg/dL (70-105); PROTEIN TOTAL 6.8 g/dL (6.0-8.3); UREA NITROGEN BLOOD 48 mg/dL (7-21)
[2022-10-16 07:53] LABS: CREATININE 7.1 mg/dL (0.6-1.3)
[2022-10-16] MEDS: ENOXAPARIN 30MG/0.3ML SYR SUBCUT SCH (09:11)
[2022-10-16] MEDS: ASPIRIN 81MG EC TABLET PO SCH (09:11)
[2022-10-16] MEDS: CLOPIDOGREL 75MG TABLET PO SCH (09:11)
[2022-10-16] MEDS: MENTHOL/LANOLIN/CALAMINE/ZN OX OINT 71GM TOP SCH (09:12)
[2022-10-16] MEDS: IPRATROPIUM/ALBUTEROL 0.5-3(2.5)MG/3ML NEB HHN SCH ×3 (09:48→21:45)
[2022-10-16] MEDS: ATORVASTATIN CALCIUM 10MG TABLET PO SCH (21:04)
[2022-10-16] MEDS: MEROPENEM 500MG in NORMAL SALINE 50ML IV SCH (23:10)
[2022-10-17] VITALS (14 sets, daily range): BP systolic 113–153; BP diastolic 47–109; PULSE 69–86; RESP 17–18; TEMP 92.1–98.2
[2022-10-17] MEDS: INSULIN LISPRO 100 UNITS/ML SUBCUT SCH ×4 (06:40→21:00)
[2022-10-17] MEDS: FAMOTIDINE 20MG/2ML VIAL IV SCH (08:56)
[2022-10-17] MEDS: ENOXAPARIN 30MG/0.3ML SYR SUBCUT SCH (08:56)
[2022-10-17] MEDS: ASPIRIN 81MG EC TABLET PO SCH (08:56)
[2022-10-17] MEDS: CLOPIDOGREL 75MG TABLET PO SCH (08:56)
[2022-10-17] MEDS: BLOOD SUGAR DIAGNOSTIC STRIP TEST SCH ×4 (09:00→21:00)
[2022-10-17 17:16] LABS: HEPATITIS B SURFACE ANTIGEN NEGATIVE
[2022-10-17 17:44] LABS: HEPATITIS B CORE AB IGM NEGATIVE
[2022-10-17 17:45] LABS: HEPATITIS A AB IGM NEGATIVE (NEGATIVE)
[2022-10-17 18:19] LABS: HEPATITIS C VIR.AB 0.15 INDEXVAL (0.00-0.80)
[2022-10-17] MEDS: MEROPENEM 500MG in NORMAL SALINE 50ML IV SCH (20:00)
[2022-10-17] MEDS: ATORVASTATIN CALCIUM 10MG TABLET PO SCH (21:00)
[2022-10-18] VITALS: BP 153/63; PULSE 89; RESP 18; TEMP 97
[2022-10-18] MEDS: INSULIN LISPRO 100 UNITS/ML SUBCUT SCH (07:00)
[2022-10-18 08:00] VITALS: BP 115/52; PULSE 72; RESP 18; TEMP 97.3
[2022-10-18] MEDS ORDERED: INSULIN LISPRO 100 UNITS/ML SUBCUT SCH (11:15)
[2022-10-18] MEDS: BLOOD SUGAR DIAGNOSTIC STRIP TEST SCH ×3 (13:00→21:00)
[2022-10-18 16:00] VITALS: BP 126/80; PULSE 80; RESP 18; TEMP 97.8
[2022-10-18] MEDS: INSULIN LISPRO (LOW DOSE) 100 UNITS/ML SUBCUT SCH (17:00)
[2022-10-18 20:03] VITALS: BP 101/45; PULSE 86; RESP 17; TEMP 96.9
[2022-10-18] MEDS: MEROPENEM 500MG in NORMAL SALINE 50ML IV SCH (20:39)
[2022-10-18] MEDS: ATORVASTATIN CALCIUM 10MG TABLET PO SCH (21:44)
[2022-10-19 00:11] VITALS: BP 96/42; PULSE 77; RESP 17; TEMP 97.6
[2022-10-19 04:00] VITALS: BP 109/56; PULSE 70; RESP 17; TEMP 97.6
[2022-10-19] MEDS: LEVOTHYROXINE SODIUM 25MCG TABLET PO SCH (06:24)
[2022-10-19] MEDS: INSULIN LISPRO (LOW DOSE) 100 UNITS/ML SUBCUT SCH ×3 (06:30→18:23)
[2022-10-19 08:00] VITALS: BP 133/49; PULSE 84; RESP 16; TEMP 97.4
[2022-10-19] MEDS: MENTHOL/LANOLIN/CALAMINE/ZN OX OINT 71GM TOP SCH ×2 (09:00→17:57)
[2022-10-19] MEDS: BLOOD SUGAR DIAGNOSTIC STRIP TEST SCH ×4 (09:00→21:21)
[2022-10-19] MEDS: FAMOTIDINE 20MG/2ML VIAL IV SCH (10:56)
[2022-10-19] MEDS: ENOXAPARIN 30MG/0.3ML SYR SUBCUT SCH ×2 (10:56→10:58)
[2022-10-19] MEDS: ASPIRIN 81MG EC TABLET PO SCH ×2 (10:56→10:58)
[2022-10-19] MEDS: CLOPIDOGREL 75MG TABLET PO SCH ×2 (10:56→10:58)
[2022-10-19 12:00] VITALS: BP 124/66; PULSE 79; RESP 16; TEMP 95.9
[2022-10-19 20:00] VITALS: BP 129/65; PULSE 85; RESP 14; TEMP 98.2
[2022-10-19] MEDS: ATORVASTATIN CALCIUM 10MG TABLET PO SCH (21:21)
[2022-10-19] MEDS: MEROPENEM 500MG in NORMAL SALINE 50ML IV SCH (21:21)
[2022-10-20] VITALS (15 sets, daily range): BP systolic 98–153; BP diastolic 35–88; PULSE 70–114; RESP 14–18; TEMP 96.4–98.8
[2022-10-20] MEDS: LEVOTHYROXINE SODIUM 25MCG TABLET PO SCH (06:37)
[2022-10-20] MEDS: BLOOD SUGAR DIAGNOSTIC STRIP TEST SCH ×4 (06:38→21:05)
[2022-10-20] MEDS: INSULIN LISPRO (LOW DOSE) 100 UNITS/ML SUBCUT SCH ×3 (06:55→17:00)
[2022-10-20] MEDS: ENOXAPARIN 30MG/0.3ML SYR SUBCUT SCH (08:39)
[2022-10-20] MEDS: ASPIRIN 81MG EC TABLET PO SCH (08:39)
[2022-10-20] MEDS: CLOPIDOGREL 75MG TABLET PO SCH (08:39)
[2022-10-20] MEDS: MENTHOL/LANOLIN/CALAMINE/ZN OX OINT 71GM TOP SCH ×2 (08:39→16:51)
[2022-10-20] MEDS ORDERED: IPRATROPIUM/ALBUTEROL 0.5-3(2.5)MG/3ML NEB HHN PRN (10:15)
[2022-10-20] MEDS: MEROPENEM 500MG in NORMAL SALINE 50ML IV SCH (20:56)
[2022-10-20] MEDS: ATORVASTATIN CALCIUM 10MG TABLET PO SCH (21:05)
[2022-10-21] VITALS: BP 142/86; PULSE 86; RESP 17; TEMP 96.7
[2022-10-21 04:00] VITALS: BP 110/60; PULSE 80; RESP 17; TEMP 96.7
[2022-10-21] MEDS: INSULIN LISPRO (LOW DOSE) 100 UNITS/ML SUBCUT SCH ×3 (06:30→17:00)
[2022-10-21] MEDS: LEVOTHYROXINE SODIUM 25MCG TABLET PO SCH (07:27)
[2022-10-21 08:00] VITALS: BP 110/60; PULSE 70; RESP 16; TEMP 96.8
[2022-10-21] MEDS: ENOXAPARIN 30MG/0.3ML SYR SUBCUT SCH (08:47)
[2022-10-21] MEDS: FAMOTIDINE 20MG/2ML VIAL IV SCH (08:47)
[2022-10-21] MEDS: CLOPIDOGREL 75MG TABLET PO SCH (08:47)
[2022-10-21] MEDS: ASPIRIN 81MG EC TABLET PO SCH (08:47)
[2022-10-21] MEDS: BLOOD SUGAR DIAGNOSTIC STRIP TEST SCH ×4 (09:29→20:45)
[2022-10-21] MEDS: MENTHOL/LANOLIN/CALAMINE/ZN OX OINT 71GM TOP SCH ×2 (09:30→17:00)
[2022-10-21 12:16] VITALS: BP 147/60; PULSE 85; RESP 18; TEMP 96.9
[2022-10-21] MEDS ORDERED: POTASSIUM CHLORIDE 20MEQ TABLET SR PO NR (13:00)
[2022-10-21 16:00] VITALS: BP 106/45; PULSE 70; RESP 18; TEMP 96.9
[2022-10-21 16:22] LABS: HEMATOCRIT 47.2 % (36.0-48.0); HEMOGLOBIN 13.8 g/dL (12.0-16.0); MEAN CORPUSCULAR HEMOGLOBIN 29.8 pg (28.0-32.0); MEAN CORPUSCULAR HGB CONC 29.2 g/dL (31.0-37.0); PLATELET 253 x1000/uL (130-400); RED BLOOD CELL COUNT 4.63 mill/uL (4.2-5.4); WHITE BLOOD COUNT 12.9 x1000/uL (4.5-11.0)
[2022-10-21 16:37] LABS: POTASSIUM 4.3 mEq/L (3.5-5.1)
[2022-10-21 17:25] LABS: CREATININE 8.4 mg/dL (0.6-1.3); PHOSPHORUS 8.2 mg/dL (2.5-4.9)
[2022-10-21 20:00] VITALS: BP 136/53; PULSE 66; RESP 18; TEMP 96.6
[2022-10-21] MEDS: MEROPENEM 500MG in NORMAL SALINE 50ML IV SCH (20:32)
[2022-10-21] MEDS: ATORVASTATIN CALCIUM 10MG TABLET PO SCH (20:33)
[2022-10-22] VITALS: BP 111/69; PULSE 66; RESP 18; TEMP 96.8
[2022-10-22] MEDS: INSULIN LISPRO (LOW DOSE) 100 UNITS/ML SUBCUT SCH ×3 (06:30→17:54)
[2022-10-22] MEDS: LEVOTHYROXINE SODIUM 25MCG TABLET PO SCH (06:47)
[2022-10-22] MEDS: BLOOD SUGAR DIAGNOSTIC STRIP TEST SCH ×4 (07:35→21:00)
[2022-10-22 08:00] VITALS: BP 114/72; PULSE 70; RESP 18; TEMP 97.8
[2022-10-22] MEDS: ENOXAPARIN 30MG/0.3ML SYR SUBCUT SCH (08:42)
[2022-10-22] MEDS: ASPIRIN 81MG EC TABLET PO SCH (08:42)
[2022-10-22] MEDS: CLOPIDOGREL 75MG TABLET PO SCH (08:42)
[2022-10-22] MEDS: MENTHOL/LANOLIN/CALAMINE/ZN OX OINT 71GM TOP SCH ×2 (08:47→17:24)
[2022-10-22 12:00] VITALS: BP 94/49; PULSE 80; RESP 18; TEMP 97.5
[2022-10-22 16:00] VITALS: BP 125/62; PULSE 80; RESP 18; TEMP 97.1
[2022-10-22 20:00] VITALS: BP 125/62; PULSE 86; RESP 16; TEMP 98.5
[2022-10-22] MEDS: ATORVASTATIN CALCIUM 10MG TABLET PO SCH (21:32)
[2022-10-22] MEDS: MEROPENEM 500MG in NORMAL SALINE 50ML IV SCH (23:36)
[2022-10-23] VITALS: BP 122/30; PULSE 80; RESP 15; TEMP 97.9
[2022-10-23 04:00] VITALS: BP 128/52; PULSE 70; RESP 16; TEMP 98.7
[2022-10-23] MEDS: INSULIN LISPRO (LOW DOSE) 100 UNITS/ML SUBCUT SCH ×3 (06:30→17:30)
[2022-10-23] MEDS: LEVOTHYROXINE SODIUM 25MCG TABLET PO SCH (06:57)
[2022-10-23 08:00] VITALS: BP 116/40; PULSE 81; RESP 18; TEMP 98.2
[2022-10-23] MEDS: BLOOD SUGAR DIAGNOSTIC STRIP TEST SCH ×3 (08:26→17:00)
[2022-10-23] MEDS ORDERED: FAMOTIDINE 20MG TABLET PO SCH (09:00)
[2022-10-23] MEDS: ASPIRIN 81MG EC TABLET PO SCH (09:18)
[2022-10-23] MEDS: CLOPIDOGREL 75MG TABLET PO SCH (09:18)
[2022-10-23] MEDS: MENTHOL/LANOLIN/CALAMINE/ZN OX OINT 71GM TOP SCH ×2 (09:19→17:13)
[2022-10-23 12:00] VITALS: BP 109/86; PULSE 72; RESP 18; TEMP 96.9
[2022-10-23 16:00] VITALS: BP 96/46; PULSE 87; RESP 18; TEMP 97
[2022-10-23 18:21] VITALS: BP 96/46; PULSE 87; TEMP 97; O2SAT 95
== END 2022-10-24 09:26 | disposition home or self-care (01) | DRG 720 ==
LOC: 5EST 12:41 → 8WST 10-13 12:50 → 4WST 10-16 16:05 → 6WST 10-23 20:58
PROVIDERS: ADMIT Internal Medicine; ATTEND Internal Medicine
PROC: 5A1D70Z Performance of Urinary Filtration, Intermittent, Less than 6 Hours Per Day (ICD-10-PCS; principal; 2022-10-11)
PROC: 5A1D70Z Performance of Urinary Filtration, Intermittent, Less than 6 Hours Per Day (ICD-10-PCS; 2022-10-12)
PROC: 5A1D70Z Performance of Urinary Filtration, Intermittent, Less than 6 Hours Per Day (ICD-10-PCS; 2022-10-14)
PROC: 5A1D70Z Performance of Urinary Filtration, Intermittent, Less than 6 Hours Per Day (ICD-10-PCS; 2022-10-17)
PROC: 0JB70ZZ Excision of Back Subcutaneous Tissue and Fascia, Open Approach (ICD-10-PCS; 2022-10-20)
PROC: 5A1D70Z Performance of Urinary Filtration, Intermittent, Less than 6 Hours Per Day (ICD-10-PCS; 2022-10-20)
DX: A41.59 Other Gram-negative sepsis (principal); J96.00 Acute respiratory failure, unspecified whether with hypoxia or hypercapnia; R65.21 Severe sepsis with septic shock; G82.50 Quadriplegia, unspecified; J15.0 Pneumonia due to Klebsiella pneumoniae; E46 Unspecified protein-calorie malnutrition; G93.41 Metabolic encephalopathy; I50.23 Acute on chronic systolic (congestive) heart failure; L89.153 Pressure ulcer of sacral region, stage 3; E11.22 Type 2 diabetes mellitus with diabetic chronic kidney disease; E11.52 Type 2 diabetes mellitus with diabetic peripheral angiopathy with gangrene; E11.649 Type 2 diabetes mellitus with hypoglycemia without coma; N39.0 Urinary tract infection, site not specified; N18.6 End stage renal disease; E11.65 Type 2 diabetes mellitus with hyperglycemia; E87.20 Acidosis, unspecified; G93.1 Anoxic brain damage, not elsewhere classified; I13.2 Hypertensive heart and chronic kidney disease with heart failure and with stage 5 chronic kidney disease, or end stage renal disease; D63.8 Anemia in other chronic diseases classified elsewhere; R13.10 Dysphagia, unspecified; D75.839 Thrombocytosis, unspecified; E78.00 Pure hypercholesterolemia, unspecified; E87.5 Hyperkalemia; E21.3 Hyperparathyroidism, unspecified; R26.9 Unspecified abnormalities of gait and mobility; Z79.4 Long term (current) use of insulin; Z86.73 Personal history of transient ischemic attack (TIA), and cerebral infarction without residual deficits; Z99.2 Dependence on renal dialysis; Z99.81 Dependence on supplemental oxygen; Z79.82 Long term (current) use of aspirin; Z79.899 Other long term (current) drug therapy; Z68.26 Body mass index [BMI] 26.0-26.9, adult
CPT/HCPCS: 36415; 36600; 70544; 70547; 70553; 71045; 80048; 80053; 80061; 82375; 82805; 82962; 83036; 83735; 84100; 84134; 84145; 84439; 84443; 85025; 85027; 86705; 86709; 86803; 87340; 90935; 92610; 93880; 94640; 97112; 97162; 97166; 97530; 97535; C9113; J1200; J1650; J1815; J1953; J2060; J2185; J3490; J7060; J7626